=== PATIENT | female | born 2000 | race Caucasian/White ===

== ENCOUNTER 2018-12-05 18:19 | Emergency (ER) | payer OTHER ==
[2018-12-05 19:43] LABS: Appearance,Urine Cloudy (Clear); Bacteria,Urine Rare /hpf; Bilirubin,Urine Negative (Negative); Blood,Urine Negative (Negative); Color,Urine Yellow; Glucose,Urine (UA) Negative (Negative); Ketones,Urine Negative (Negative); Leukocyte Esterase,Urine Large (Negative); Mucus,Urine Occasional /hpf; Nitrite,Urine Negative (Negative); Protein,Urine Negative (Negative); RBC,Urine 3 /hpf (0-5); Specific Gravity,Urine 1.025 (1.001-1.035); Squamous Epithelial Cell,Urine 17 /hpf (0-4); Urobilinogen,Urine <2.0 mg/dL (<2.0); WBC,Urine 2 /hpf (0-5)
[2018-12-05 19:55] LABS: Basophils % (A) 0 %; Eosinophils # (A) 0.1 k/uL (0-0.7); Eosinophils % (A) 1 %; HCT 40.4 % (34.0-46.0); HGB 13.4 gm/dL (11.4-16.0); Lymphocytes # (A) 2.3 k/uL (1.0-4.8); Lymphocytes % (A) 27 %; MCH 31.2 pg (25.0-35.0); MCHC 33.2 g/dL (31.0-37.0); MCV 93.9 fL (80.0-100.0); Mean Platelet Volume 8.7; Monocytes # (A) 0.4 k/uL (0-1.0); Monocytes % (A) 5 %; Neutrophils # (A) 5.3 k/uL (1.3-7.7); Neutrophils % (A) 64 %; Platelet Count 241 k/uL (150-450); RDW 13.7 % (11.5-15.5); WBC 8.3 k/uL (4.0-11.0)
[2018-12-05 20:11] LABS: ALT 29 U/L (9-52); AST 20 U/L (14-36); Albumin 4.6 g/dL (3.5-5.0); Alkaline Phosphatase 112 U/L (38-126); Amylase 55 U/L (30-110); Anion Gap 11 mmol/L; Blood Urea Nitrogen 8 mg/dL (7-17); Calcium 9.7 mg/dL (8.4-10.2); Carbon Dioxide 26 mmol/L (22-30); Chloride 102 mmol/L (98-107); Glucose 107 mg/dL (74-99); Lipase 41 U/L (23-300); Potassium 4.7 mmol/L (3.5-5.1); Sodium 139 mmol/L (137-145); Total Bilirubin 0.3 mg/dL (0.2-1.3); Total Protein 7.8 g/dL (6.3-8.2)
--- NOTE | 2018-12-05 20:25 | US ---
EXAMINATION TYPE: Transabdominal DATE OF EXAM: 12/05/2018 8:08 PM COMPARISON: NONE CLINICAL HISTORY: Pain. Pain LMP unknown EXAM PERFORMED: Transvaginal (TV) and Transabdominal (TA) EXAM MEASUREMENTS: GESTATIONAL AGE / DATING Physician Established: Not yet established Dates by LMP: LMP unknown Dates by First Scan: No previous this is first scan ( Dates by Current Scan for: Unable to date by today's study MATERNAL ANATOMY Uterus: 6.6 x 3.8 x 4.6 cm Right Ovary: 4.0 x 2.4 x 3.1 cm Left Ovary: 2.8 x 1.4 x 2.6 cm Post CDS / Adnexa: wnl Presence of free fluid: no Presence of corpus luteal cyst: Yes right 1.9 x .9 x 2.0cm Presence of subchorionic bleed: No GESTATION / SURVEY IUP: No IUP seen at this time. Beta HcG (if available): Not available at this time IMPRESSION: No acute process.
[2018-12-05 20:35] VITALS: RESP 16
--- NOTE | 2018-12-05 21:15 | ED ---
General Adult HPI - General Chief complaint: Abdominal Pain Stated complaint: abdominal pain/early Time Seen by Provider: 12/05/18 18:49 Source: patient, RN notes reviewed Mode of arrival: ambulatory Limitations: no limitations - History of Present Illness Initial comments: 18-year-old female currently 8 weeks by LMP presents to the emergency department because of test. Patient states she did attempt test that was positive. Patient states she does have some nausea but has not vomited. Patient denies any abdominal pain. She denies any vaginal bleeding or cramping. Patient states she is here because she wants to make sure everything is okay with her . She states she would like an ultrasound done. States she tried to follow up with [facility] PHYS[facility] but she is trying to get insurance so was not able to be seen yet.Patient has no other complaints at this time including shortness of breath, chest pain, abdominal pain, vomiting, headache, or visual changes. - Related Data Home Medications Medication Instructions Recorded Confirmed No Known Home Medications 12/05/18 12/05/18 Allergies Allergy/AdvReac Type Severity Reaction Status Date / Time No Known Allergies Allergy Verified 12/05/18 18:54 Review of Systems ROS Statement: Those systems with pertinent positive or pertinent negative responses have been documented in the HPI. ROS Other: All systems not noted in ROS Statement are negative. Past Medical History Past Medical History: No Reported History History of Any Multi-Drug Resistant Organisms: None Reported Past Surgical History: No Surgical Hx Reported Past Psychological History: No Psychological Hx Reported Smoking Status: Light tobacco smoker Past Alcohol Use History: None Reported Past Drug Use History: None Reported General Exam Limitations: no limitations General appearance: alert, in no apparent distress Head exam: Present: atraumatic, normocephalic, normal inspection Eye exam: Present: normal appearance, PERRL, EOMI. Absent: scleral icterus, conjunctival injection, periorbital swelling ENT exam: Present: normal exam, mucous membranes moist Neck exam: Present: normal inspection, full ROM. Absent: tenderness, meningismus, lymphadenopathy Respiratory exam: Present: normal lung sounds bilaterally. Absent: respiratory distress, wheezes, rales, rhonchi, stridor Cardiovascular Exam: Present: regular rate, normal rhythm, normal heart sounds. Absent: systolic murmur, diastolic murmur, rubs, gallop, clicks GI/Abdominal exam: Present: soft, normal bowel sounds. Absent: distended, tenderness (No lower abdominal tenderness), guarding, rebound, rigid Neurological exam: Present: alert, oriented X3, CN II-XII intact Psychiatric exam: Present: normal affect, normal mood Course Vital Signs 12/05/18 12/05/18 18:44 20:34 Temperature 98.3 F 98.3 F Pulse Rate 76 77 Respiratory 18 16 Rate Blood Pressure 128/80 122/74 O2 Sat by Pulse 98 99 Oximetry Medical Decision Making - Medical Decision Making 18-year-old female with a LMP of 9 weeks ago presents to the emergency department for an ultrasound. Patient states that she is not having any abdominal pain by her mother wanted her to come to the ER to make sure that the "baby was okay." Denies any vaginal bleeding or cramping. Patient is nontender and exam. CBC CMP unremarkable. HCG Quant is 2000. Ultrasound shows no IUP at this time. Patient may be off on her LMP as her hCG Quant is low. This may just be an early . However I discussed the morning to following up with P[facility] CARE PHYSICIAN to rule out ectopic or other complication. Patient does have an appointment with the clinic tomorrow that she will follow up with his bowel. Patient will repeat hCG Quant. She states that she is going to call OBs tomorrow to schedule appointment. - Lab Data Result diagrams: 12/05/18 19:02 12/05/18 19:02 Lab Results 12/05/18 12/05/18 12/05/18 Range/Units 19:02 19:02 19:15 WBC 8.3 (4.0-11.0) k/uL RBC 4.30 (3.80-5.40) m/uL Hgb 13.4 (11.4-16.0) gm/dL Hct 40.4 (34.0-46.0) % MCV 93.9 (80.0-100.0) fL MCH 31.2 (25.0-35.0) pg MCHC 33.2 (31.0-37.0) g/dL RDW 13.7 (11.5-15.5) % Plt Count 241 (150-450) k/uL Neutrophils % 64 % Lymphocytes % 27 % Monocytes % 5 % Eosinophils % 1 % Basophils % 0 % Neutrophils # 5.3 (1.3-7.7) k/uL Lymphocytes # 2.3 (1.0-4.8) k/uL Monocytes # 0.4 (0-1.0) k/uL Eosinophils # 0.1 (0-0.7) k/uL Basophils # 0.0 (0-0.2) k/uL Sodium 139 (137-145) mmol/L Potassium 4.7 (3.5-5.1) mmol/L Chloride 102 (98-107) mmol/L Carbon Dioxide 26 (22-30) mmol/L Anion Gap 11 mmol/L BUN 8 (7-17) mg/dL Creatinine 0.86 (0.52-1.04) mg/dL Est GFR (CKD-EPI)AfAm >90 (>60 ml/min/1.73 sqM) Est GFR (CKD-EPI)NonAf >90 (>60 ml/min/1.73 sqM) Glucose 107 H (74-99) mg/dL Calcium 9.7 (8.4-10.2) mg/dL Total Bilirubin 0.3 (0.2-1.3) mg/dL AST 20 (14-36) U/L ALT 29 (9-52) U/L Alkaline Phosphatase 112 (38-126) U/L Total Protein 7.8 (6.3-8.2) g/dL Albumin 4.6 (3.5-5.0) g/dL Amylase 55 (30-110) U/L Lipase 41 (23-300) U/L HCG, Quant mIU/mL Urine Color Yellow Urine Appearance Cloudy H (Clear) Urine pH 6.0 (5.0-8.0) Ur Specific Hume 1.025 (1.001-1.035) Urine Protein Negative (Negative) Urine Glucose (UA) Negative (Negative) Urine Ketones Negative (Negative) Urine Blood Negative (Negative) Urine Nitrite Negative (Negative) Urine Bilirubin Negative (Negative) Urine Urobilinogen <2.0 (<2.0) mg/dL Ur Leukocyte Esterase Large H (Negative) Urine RBC 3 (0-5) /hpf Urine WBC 2 (0-5) /hpf Ur Squamous Epith Cells 17 H (0-4) /hpf Urine Bacteria Rare H (None) /hpf Urine Mucus Occasional H (None) /hpf Urine HCG, Qual (Not Detectd) 12/05/18 12/05/18 Range/Units 19:15 20:00 WBC (4.0-11.0) k/uL RBC (3.80-5.40) m/uL Hgb (11.4-16.0) gm/dL Hct (34.0-46.0) % MCV (80.0-100.0) fL MCH (25.0-35.0) pg MCHC (31.0-37.0) g/dL RDW (11.5-15.5) % Plt Count (150-450) k/uL Neutrophils % % Lymphocytes % % Monocytes % % Eosinophils % % Basophils % % Neutrophils # (1.3-7.7) k/uL Lymphocytes # (1.0-4.8) k/uL Monocytes # (0-1.0) k/uL Eosinophils # (0-0.7) k/uL Basophils # (0-0.2) k/uL Sodium (137-145) mmol/L Potassium (3.5-5.1) mmol/L Chloride (98-107) mmol/L Carbon Dioxide (22-30) mmol/L Anion Gap mmol/L BUN (7-17) mg/dL Creatinine (0.52-1.04) mg/dL Est GFR (CKD-EPI)AfAm (>60 ml/min/1.73 sqM) Est GFR (CKD-EPI)NonAf (>60 ml/min/1.73 sqM) Glucose (74-99) mg/dL Calcium (8.4-10.2) mg/dL Total Bilirubin (0.2-1.3) mg/dL AST (14-36) U/L ALT (9-52) U/L Alkaline Phosphatase (38-126) U/L Total Protein (6.3-8.2) g/dL Albumin (3.5-5.0) g/dL Amylase (30-110) U/L Lipase (23-300) U/L HCG, Quant 2163.5 mIU/mL Urine Color Urine Appearance (Clear) Urine pH (5.0-8.0) Ur Specific Hume (1.001-1.035) Urine Protein (Negative) Urine Glucose (UA) (Negative) Urine Ketones (Negative) Urine Blood (Negative) Urine Nitrite (Negative) Urine Bilirubin (Negative) Urine Urobilinogen (<2.0) mg/dL Ur Leukocyte Esterase (Negative) Urine RBC (0-5) /hpf Urine WBC (0-5) /hpf Ur Squamous Epith Cells (0-4) /hpf Urine Bacteria (None) /hpf Urine Mucus (None) /hpf Urine HCG, Qual Detected (Not Detectd) Disposition Clinical Impression: Disposition: TRANSFER TO PSYCH HOSP/UNIT Condition: Good Instructions (If sedation given, give patient instructions): (ED) Additional Instructions: Take vitamins. Please attend your appointment with clinic tomorrow. Follow up with [facility]ARE PHYSICIAN in one to 2 days. Return here to the emergency department if you have any worsening symptoms. Is patient prescribed a controlled substance at d/c from ED?: No Referrals: None,Stated [Primary Care Provider] - 1-2 days Luz Elena Ledbetter MD [STAFF PHYSICIAN] - 1-2 days Time of Disposition: 21:46
[2018-12-05 22:25] VITALS: BP 123/76; PULSE 76; TEMP 98.4
== END 2018-12-05 22:31 | disposition home or self-care (01) ==
LOC: EC 18:19
DX: O99.89 Other specified diseases and conditions complicating pregnancy, childbirth and the puerperium (principal); R11.0 Nausea; Z32.01 Encounter for pregnancy test, result positive; O99.331 Smoking (tobacco) complicating pregnancy, first trimester; F17.200 Nicotine dependence, unspecified, uncomplicated; Z3A.08 8 weeks gestation of pregnancy
CPT/HCPCS: 36415; 76801; 76817; 80053; 81001; 81025; 82150; 83690; 84702; 85025; 99284

== ENCOUNTER → 2019-01-10 | Outpatient (CLI) | payer OTHER ==
--- NOTE | 2019-01-10 11:51 | US ---
EXAMINATION TYPE: Transabdominal DATE OF EXAM: 01/10/2019 10:39 AM COMPARISON: US 2019 CLINICAL HISTORY: Z36. Confirm Dates. Confirm dates, 1 EXAM PERFORMED: Transabdominal (TA) EXAM MEASUREMENTS: GESTATIONAL AGE / DATING Physician Established: (9 weeks/4 days) EDC: 08/11/2019 Dates by LMP: Unknown Dates by First Scan: Unable to date by exam Dates by Current Scan for: ( 9 weeks/5 days) EDC: 08/10/2019 MATERNAL ANATOMY Uterus: 11.9 x 6.4 x 6.6cm, anteverted Right Ovary: 3.3 x 2.2 x 2.6cm Left Ovary: 2.7 x 1.7 x 1.8cm Post CDS / Adnexa: wnl Presence of free fluid: no Presence of corpus luteal cyst: not seen Presence of subchorionic bleed: no GESTATION / SURVEY CRL: 2.9cm (9 weeks/5 days) Yolk Sac (normal less than 6mm): not seen Heart Rate: 168 bpm Rhythm: Normal IUP: Live IUP Date of LMP: Unknown Beta HcG (if available): Not available at time of exam. Live single IUP measuring 9 weeks 5 days with a heart rate of 168bpm and an estimated delivery date o f 08/10/2019. IMPRESSION: Single live intrauterine with a sonographic age of 9 weeks and 5 days and estimated date of delivery of 08/10/2019. Dates are concordant with the physician established dates.
== END | disposition home or self-care (01) ==
LOC: RADUSWWP 10:19
PROVIDERS: ATTEND Obstetrics & Gynecology
DX: Z36.9 Encounter for antenatal screening, unspecified (principal)
CPT/HCPCS: 76801

== ENCOUNTER 2019-05-25 17:45 | Outpatient (CLI) | payer OTHER ==
[2019-05-25 18:47] VITALS: BP 138/75; PULSE 95; RESP 14; TEMP 98.1
--- NOTE | 2019-05-26 12:07 | P.MSEPDOC ---
Presenting Problems - Arrival Data Date of Arrival on Unit: 05/25/19 Time of Arrival on Unit: 17:53 Mode of Transport: Ambulatory - Complaint OB-Reason for Admission/Chief Complaint: Headache Comment: headache for one week. no other complaints. bp wnl. reactive strip, no contractions Medical History - Information : 1 Para: 0 Term: 0 : 0 Abortions: Spontaneous or Elective: 0 Number of Living Children: 0 - Gestational Age Gestational Age by KADIE (wks/days): 28 Weeks and 6 Days Review of Systems - Review of Systems Constitutional: No problems Breast: No problems ENT: No problems Cardiovascular: No problems Respiratory: No problems Gastrointestinal: No problems Genitourinary: No problems Musculoskeletal: No problems Neurological: No problems Skin: No problems Vital Signs - Temperature Temperature: 98.1 F Temperature Source: Oral - Pulse Right Brachial Pulse Rate: 95 Pulse Assessment Method: Automatic Cuff - Respirations Respiratory Rate: 14 Oxygen Delivery Method: Room Air - Blood Pressure Right Arm Blood Pressure: 138/75 Blood Pressure Mean: 96 Blood Pressure Source: Automatic Cuff Medical Screen Scoring (Pre) - Cervical Exam Dilation: Exam Deferred - Uterine Contractions Frequency: N/A Duration: N/A Intensity: N/A - Maternal Vital Signs Maternal Temperature: N/A Maternal Blood Pressure: N/A Signs of Preeclampsia: N/A Maternal Respirations: N/A - Maternal Trauma Maternal Trauma: N/A - Assessment - Baby A Baseline FHR: 130 Heart Rate - NICHD Category: Category I (Normal) = 0 NST: Reactive Position: N/A - Total Score - Baby A Total Score - Baby A: 0 - Total Score - Baby B Total Score - Baby B: 0 - Total Score - Baby C Total Score - Baby C: 0 - Level of Risk - Baby A Level of Risk - Baby A: Low (0-5) - Level of Risk - Baby B Level of Risk - Baby B: Low (0-5) - Level of Risk - Baby C Level of Risk - Baby C: Low (0-5) Physician Notification (Pre) - Physician Notified Physician Notified Date: 05/25/19 Physician Notified Time: 18:18 Physician/Practitioner Notifed:: cj New Order Received: Yes - Notification Comment Comment: pt may be discharged to ER for further evaluation Medical Screen Scoring (Post) - Cervical Exam Dilation: Exam Deferred - Uterine Contractions Frequency: N/A Duration: N/A Intensity: N/A - Maternal Vital Signs Maternal Temperature: N/A Maternal Blood Pressure: N/A Signs of Preeclampsia: N/A Maternal Respirations: N/A - Pain Assessment Pain Location and Character: Head Pain Scale Used: Numeric (1 - 10) Pain Intensity: 10 Pain Management Goal: 3 Pain Description: *Acute Pain Frequency: Constant Pain Duration: 7 Pain Duration Units: Days Pain Behavior: None Exhibited Pain Aggravating Factors: None Pharmacological Interventions: Medication FLACC Face: No Expression/Smile = 0 FLACC Legs: Relaxed = 0 FLACC Activity: Lying Quietly = 0 FLACC Cry: No Cry = 0 FLACC Consolability: Content/Relaxed = 0 - Maternal Trauma Maternal Trauma: N/A - Assessment - Baby A Heart Rate: 130 Heart Rate - NICHD Category: Category I (Normal) = 0 NST: Reactive Position: N/A Station: N/A - Total Score Total Score - Baby A: 0 Total Score - Baby B: 0 Total Score - Baby C: 0 - Post Treatment Level of Risk Post Treatment Level of Risk - Baby A: Low (0-5) Post Treatment Level of Risk - Baby B: Low (0-5) Post Treatment Level of Risk - Baby C: Low (0-5) Physician Notification (Post) - Physician Notified Physician Notified Date: 05/25/19 Physician Notified Time: 18:18 Physician/Practitioner Notified:: cj Spoke With: cj New Order Received: Yes - Notification Comment Comment: reported pt visit to triage with c/o headache for past week, rates 10/10, no outward signs of discomfort. bp wnl, reactive strip, no contractions, no other complaints other than headache. Disposition - Disposition OB Disposition: Discharge to home Discharge Date: 05/25/19 Discharge Time: 18:29 I agree with the RN Medical Screening Exam: Yes Risk & Benefit of care provided described in d/c instruction: Yes Diagnosis: RELATED CONDITIONS, UNSPECIFIED, THIRD TRIMESTER (headache)
== END 2019-05-25 18:29 | disposition home or self-care (01) ==
LOC: FBPOP 17:45
PROVIDERS: ATTEND Obstetrics & Gynecology
DX: O26.93 Pregnancy related conditions, unspecified, third trimester (principal); Z3A.28 28 weeks gestation of pregnancy
CPT/HCPCS: 59025; G0463; 99213

== ENCOUNTER 2019-06-23 13:57 | Outpatient (CLI) | payer OTHER ==
[2019-06-23 15:03] LABS: Amorphous Sediment,Urine Rare /hpf; Appearance,Urine Cloudy (Clear); Bilirubin,Urine Negative (Negative); Blood,Urine Negative (Negative); Color,Urine Yellow; Glucose,Urine (UA) Negative (Negative); Ketones,Urine Negative (Negative); Leukocyte Esterase,Urine Moderate (Negative); Mucus,Urine Rare /hpf; Nitrite,Urine Negative (Negative); PH, Urine 6.5 (5.0-8.0); Protein,Urine Negative (Negative); RBC,Urine 4 /hpf (0-5); Specific Gravity,Urine 1.017 (1.001-1.035); Squamous Epithelial Cell,Urine 7 /hpf (0-4); Urobilinogen,Urine <2.0 mg/dL (<2.0); WBC,Urine 15 /hpf (0-5)
[2019-06-23 15:53] VITALS: BP 127/73; PULSE 100; RESP 16; TEMP 96.8
--- NOTE | 2019-06-24 07:11 | P.MSEPDOC ---
Presenting Problems - Arrival Data Date of Arrival on Unit: 06/23/19 Time of Arrival on Unit: 13:57 Mode of Transport: Ambulatory - Complaint OB-Reason for Admission/Chief Complaint: Other Comment: lower abdominal and back pain Medical History - Information : 1 Para: 0 Term: 0 : 0 Abortions: Spontaneous or Elective: 0 Number of Living Children: 0 - Gestational Age Gestational Age by KADIE (wks/days): 33 Weeks and 0 Days Review of Systems - Review of Systems Constitutional: No problems Breast: No problems ENT: No problems Cardiovascular: No problems Respiratory: No problems Gastrointestinal: No problems Genitourinary: No problems Musculoskeletal: No problems Neurological: No problems Skin: No problems Vital Signs - Temperature Temperature: 96.8 F Temperature Source: Temporal Artery Scan - Pulse Pulse Oximetery Pulse Rate: 100 Pulse Assessment Method: Pulse Oximetry - Respirations Respiratory Rate: 16 Oxygen Delivery Method: Room Air O2 Sat by Pulse Oximetry: 98 - Blood Pressure Right Arm Blood Pressure: 127/73 Blood Pressure Mean: 91 Blood Pressure Source: Automatic Cuff Medical Screen Scoring (Pre) - Cervical Exam Dilation: 0 cm = 0 Effacement: Exam Deferred Membranes: Intact - Uterine Contractions Frequency: N/A Duration: N/A Intensity: N/A - Maternal Vital Signs Maternal Temperature: N/A Maternal Blood Pressure: N/A Signs of Preeclampsia: N/A Maternal Respirations: N/A - Maternal Trauma Maternal Trauma: N/A - Assessment - Baby A Baseline FHR: 130 Heart Rate - NICHD Category: Category I (Normal) = 0 NST: Reactive Position: N/A Station: N/A - Total Score - Baby A Total Score - Baby A: 0 - Total Score - Baby B Total Score - Baby B: 0 - Total Score - Baby C Total Score - Baby C: 0 - Level of Risk - Baby A Level of Risk - Baby A: Low (0-5) - Level of Risk - Baby B Level of Risk - Baby B: Low (0-5) - Level of Risk - Baby C Level of Risk - Baby C: Low (0-5) Physician Notification (Pre) - Physician Notified Physician Notified Date: 06/23/19 Physician Notified Time: 15:18 New Order Received: Yes (urinalysis then discharge) - Notification Comment Comment: Dr. Robert called, report given on maternal/ status, complaints of. constant lower abdominal and back pain since yesterday. Pt denies any complications with the . FFN collected and sterile vag exam performed (closed/thick). No. contractions noted on the monitor. Orders to send a urine for urinalysis. If the urine. is "clean" the pt can be discharge home. Dr. Robert called with results of urinalysis, WBC 15, moderate leukocytes, no bacteria. Orders to send urine for culture and discharge pt home. Give pt instructions to call office on tuesday for urine culture results. Disposition - Disposition OB Disposition: Discharge to home Discharge Date: 06/23/19 Discharge Time: 15:25 I agree with the RN Medical Screening Exam: Yes Risk & Benefit of care provided described in d/c instruction: Yes Diagnosis: FALSE LABOR BEFORE 37 COMPLETED WEEKS OF GEST, THIRD TRI (Patient presents to triage with complaints of low back pain. Evaluation is consistent with discomfort of without evidence of labor.)
== END 2019-06-23 15:25 | disposition home or self-care (01) ==
LOC: FBPOP 13:57
PROVIDERS: ATTEND Obstetrics & Gynecology
DX: O47.03 False labor before 37 completed weeks of gestation, third trimester (principal); Z3A.33 33 weeks gestation of pregnancy
CPT/HCPCS: 59025; 81001; 87086; G0463; 99213

== ENCOUNTER 2019-07-16 17:22 | Outpatient (CLI) | payer OTHER ==
[2019-07-16 18:06] VITALS: BP 124/78; PULSE 122; RESP 18; TEMP 99
[2019-07-16] MEDS ORDERED: LACTATED RINGERS 1,000 ML IV ONE (19:30)
[2019-07-16 20:16] LABS: Appearance,Urine Cloudy (Clear); Bilirubin,Urine Negative (Negative); Blood,Urine Moderate (Negative); Color,Urine Yellow; Glucose,Urine (UA) Negative (Negative); Ketones,Urine 3+ (Negative); Leukocyte Esterase,Urine Moderate (Negative); Mucus,Urine Many /hpf; Nitrite,Urine Negative (Negative); Protein,Urine 1+ (Negative); RBC,Urine >182 /hpf (0-5); Specific Gravity,Urine 1.032 (1.001-1.035); Squamous Epithelial Cell,Urine 15 /hpf (0-4); WBC,Urine 8 /hpf (0-5)
--- NOTE | 2019-07-17 10:31 | P.MSEPDOC ---
Presenting Problems - Arrival Data Date of Arrival on Unit: 07/16/19 Time of Arrival on Unit: 17:15 Mode of Transport: Ambulatory - Complaint OB-Reason for Admission/Chief Complaint: Possible Onset of Labor, Acute Nausea/Vomiting Medical History - Information : 1 Para: 0 Term: 0 : 0 Abortions: Spontaneous or Elective: 0 Number of Living Children: 0 - Gestational Age Gestational Age by KADIE (wks/days): 36 Weeks and 2 Days - History Complications: No Care Review of Systems - Review of Systems Constitutional: No problems Breast: No problems ENT: No problems Cardiovascular: No problems Respiratory: No problems Gastrointestinal: No problems Genitourinary: No problems Musculoskeletal: No problems Neurological: No problems Skin: No problems Vital Signs - Temperature Temperature: 99.0 F Temperature Source: Oral - Pulse Pulse Oximetery Pulse Rate: 122 Pulse Assessment Method: Automatic Cuff - Respirations Respiratory Rate: 18 Oxygen Delivery Method: Room Air - Blood Pressure Right Arm Blood Pressure: 124/78 Blood Pressure Mean: 93 Blood Pressure Source: Automatic Cuff Medical Screen Scoring (Pre) - Pain Assessment Pain Location and Character: Abdomen Pain Scale Used: Numeric (1 - 10) Pain Intensity: 10 Pain Description: *Acute Pain Radiation Location: none Pain Frequency: Intermittent Pain Duration: 12 Pain Duration Units: Hours Pain Behavior: Vocalization Pain Aggravating Factors: Contractions Disposition - Disposition OB Disposition: Triage Discharge Date: 07/16/19 Discharge Time: 20:30 I agree with the RN Medical Screening Exam: Yes Risk & Benefit of care provided described in d/c instruction: Yes Diagnosis: DEHYDRATION
== END 2019-07-16 20:30 | disposition home or self-care (01) ==
LOC: FBPOP 17:22
PROVIDERS: ATTEND Obstetrics & Gynecology
DX: O99.89 Other specified diseases and conditions complicating pregnancy, childbirth and the puerperium (principal); E86.0 Dehydration; Z3A.36 36 weeks gestation of pregnancy
CPT/HCPCS: 59025; 96360; 84112; 81001; 87086; G0463; 99214

== ENCOUNTER 2019-07-22 16:36 | Outpatient (CLI) | payer OTHER ==
[2019-07-22 18:44] VITALS: BP 131/77; PULSE 100; RESP 18; TEMP 96.6
--- NOTE | 2019-07-24 08:24 | P.MSEPDOC ---
Presenting Problems - Arrival Data Date of Arrival on Unit: 07/22/19 Time of Arrival on Unit: 16:36 Mode of Transport: Ambulatory - Complaint OB-Reason for Admission/Chief Complaint: Possible Onset of Labor Medical History - Information : 1 Para: 0 Term: 0 : 0 Abortions: Spontaneous or Elective: 0 Number of Living Children: 0 - Gestational Age Gestational Age by KADIE (wks/days): 37 Weeks and 1 Days - History Complications: GBS+ Review of Systems - Review of Systems Constitutional: No problems Breast: No problems ENT: No problems Cardiovascular: No problems Respiratory: No problems Gastrointestinal: No problems Genitourinary: No problems Musculoskeletal: No problems Neurological: No problems Skin: No problems Vital Signs - Temperature Temperature: 96.6 F Temperature Source: Temporal Artery Scan - Pulse Right Brachial Pulse Rate: 100 Pulse Assessment Method: Automatic Cuff - Respirations Respiratory Rate: 18 Oxygen Delivery Method: Room Air O2 Sat by Pulse Oximetry: 100 - Blood Pressure Right Arm Blood Pressure: 131/77 Blood Pressure Mean: 95 Blood Pressure Source: Automatic Cuff Medical Screen Scoring (Pre) - Cervical Exam Dilation: 1-3 cm = 1 Effacement: Exam Deferred Membranes: Intact - Uterine Contractions Frequency: > 5 minutes apart = 1 Duration: > 40 seconds = 2 Intensity: N/A - Maternal Vital Signs Maternal Temperature: N/A Maternal Blood Pressure: N/A Signs of Preeclampsia: N/A Maternal Respirations: N/A - Maternal Trauma Maternal Trauma: N/A - Assessment - Baby A Baseline FHR: 130 Heart Rate - NICHD Category: Category I (Normal) = 0 NST: Reactive Position: N/A Station: N/A - Total Score - Baby A Total Score - Baby A: 4 - Total Score - Baby B Total Score - Baby B: 4 - Total Score - Baby C Total Score - Baby C: 4 - Level of Risk - Baby A Level of Risk - Baby A: Low (0-5) - Level of Risk - Baby B Level of Risk - Baby B: Low (0-5) - Level of Risk - Baby C Level of Risk - Baby C: Low (0-5) Physician Notification (Pre) - Physician Notified Physician Notified Date: 07/22/19 Physician Notified Time: 18:17 New Order Received: Yes - Notification Comment Comment: discharge pt home, follow up at scheduled appt this week, Disposition - Disposition OB Disposition: Triage, Discharge to home, Written follow up instructions reviewed Discharge Date: 07/22/19 Discharge Time: 18:30 I agree with the RN Medical Screening Exam: Yes Risk & Benefit of care provided described in d/c instruction: Yes Diagnosis: FALSE LABOR BEFORE 37 COMPLETED WEEKS OF GEST, THIRD TRI
== END 2019-07-22 18:30 | disposition home or self-care (01) ==
LOC: FBPOP 16:36
PROVIDERS: ATTEND Obstetrics & Gynecology
DX: O47.1 False labor at or after 37 completed weeks of gestation (principal); Z3A.37 37 weeks gestation of pregnancy
CPT/HCPCS: 59025; G0463; 99213

== ENCOUNTER 2019-07-26 07:06 | Outpatient (CLI) | payer OTHER ==
[2019-07-26 09:15] VITALS: BP 122/72; PULSE 90; RESP 20; TEMP 98.6
--- NOTE | 2019-07-26 12:52 | P.MSEPDOC ---
Presenting Problems - Arrival Data Date of Arrival on Unit: 07/26/19 Time of Arrival on Unit: 07:16 Mode of Transport: Ambulatory - Complaint OB-Reason for Admission/Chief Complaint: Other Medical History - Information : 1 Para: 0 Term: 0 : 0 Abortions: Spontaneous or Elective: 0 Number of Living Children: 0 - Gestational Age Gestational Age by KADIE (wks/days): 37 Weeks and 5 Days Review of Systems - Review of Systems Constitutional: No problems Breast: No problems ENT: No problems Cardiovascular: No problems Respiratory: No problems Gastrointestinal: No problems Genitourinary: No problems Musculoskeletal: No problems Neurological: No problems Skin: No problems Vital Signs - Temperature Temperature: 98.6 F Temperature Source: Oral - Pulse Right Brachial Pulse Rate: 90 Pulse Assessment Method: Automatic Cuff - Respirations Respiratory Rate: 20 Oxygen Delivery Method: Room Air O2 Sat by Pulse Oximetry: 98 - Blood Pressure Right Arm Blood Pressure: 122/72 Blood Pressure Mean: 88 Blood Pressure Source: Automatic Cuff Medical Screen Scoring (Pre) - Cervical Exam Dilation: 1-3 cm = 1 Effacement: More than 50% = 2 Membranes: Intact - Uterine Contractions Frequency: > 5 minutes apart = 1 Duration: N/A Intensity: N/A - Maternal Vital Signs Maternal Temperature: N/A Maternal Blood Pressure: N/A Signs of Preeclampsia: N/A Maternal Respirations: N/A - Maternal Trauma Maternal Trauma: N/A - Assessment - Baby A Baseline FHR: 115 Heart Rate - NICHD Category: Category I (Normal) = 0 NST: Reactive Position: N/A - Total Score - Baby A Total Score - Baby A: 4 - Total Score - Baby B Total Score - Baby B: 4 - Total Score - Baby C Total Score - Baby C: 4 - Level of Risk - Baby A Level of Risk - Baby A: Low (0-5) - Level of Risk - Baby B Level of Risk - Baby B: Low (0-5) - Level of Risk - Baby C Level of Risk - Baby C: Low (0-5) Physician Notification (Pre) - Physician Notified Physician Notified Date: 07/26/19 Physician Notified Time: 08:50 New Order Received: Yes - Notification Comment Comment: cervix rechecked after 1 hour with no change noted. contraction irregular. pt resting quietly. may discharge pt to home with instructions Disposition - Disposition OB Disposition: Discharge to home Discharge Date: 07/26/19 Discharge Time: 09:05 I agree with the RN Medical Screening Exam: Yes Risk & Benefit of care provided described in d/c instruction: Yes Diagnosis: FALSE LABOR AT OR AFTER 37 COMPLETED WEEKS OF GESTATION
== END 2019-07-26 09:05 | disposition home or self-care (01) ==
LOC: FBPOP 07:06
PROVIDERS: ATTEND Obstetrics & Gynecology
DX: O47.1 False labor at or after 37 completed weeks of gestation (principal); Z3A.37 37 weeks gestation of pregnancy
CPT/HCPCS: 59025; G0463; 99213

== ENCOUNTER 2019-08-03 07:15 | Outpatient (CLI) | payer OTHER ==
[2019-08-03 08:05] VITALS: BP 122/78; PULSE 96; RESP 16; TEMP 96
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
== END 2019-08-03 08:00 | disposition home or self-care (01) ==
LOC: FBPOP 07:15
PROVIDERS: ATTEND Obstetrics & Gynecology
DX: O9A.313 Physical abuse complicating pregnancy, third trimester (principal); Z3A.38 38 weeks gestation of pregnancy
CPT/HCPCS: 59025; G0463; 99213

== ENCOUNTER 2019-08-11 17:20 | Inpatient (IN) | payer OTHER ==
[2019-08-11] MEDS ORDERED: OXYTOCIN 10 UNIT/ML 1 ML VIAL IM PRN (19:26)
[2019-08-11] MEDS ORDERED: TERBUTALINE 1 MG/ML VIAL SQ PRN (19:26)
[2019-08-11] MEDS ORDERED: METHYLERGONOVINE 0.2 MG/ML 1 ML AMP IM PRN (19:26)
[2019-08-11] MEDS ORDERED: CARBOPROST TROMETHAMINE 250 MCG/ML 1 ML AMP IM PRN (19:26)
[2019-08-11] MEDS ORDERED: LIDOCAINE 0.5% (PF) 5 MG/ML (50 ML SDV) SQ PRN (19:26)
[2019-08-11] MEDS ORDERED: AMPICILLIN 2,000 MG in SODIUM CHLORIDE 0.9% 100 ML IVPB STA (19:26)
[2019-08-11] MEDS ORDERED: LACTATED RINGERS 1,000 ML IV SCH (19:30)
[2019-08-11 20:25] LABS: Anisocytosis Slight; Basophils % (A) 0 %; Eosinophils % (A) 0 %; HCT 33.2 % (34.0-46.0); HGB 10.8 gm/dL (11.4-16.0); Hypochromasia Slight; Lymphocytes # (A) 1.3 k/uL (1.0-4.8); Lymphocytes % (A) 10 %; MCH 28.9 pg (25.0-35.0); MCHC 32.5 g/dL (31.0-37.0); Mean Platelet Volume 11.7; Monocytes # (A) 0.6 k/uL (0-1.0); Monocytes % (A) 5 %; Neutrophils # (A) 10.8 k/uL (1.3-7.7); Neutrophils % (A) 83 %; Platelet Count 207 k/uL (150-450); RBC 3.73 m/uL (3.80-5.40); RDW 16.2 % (11.5-15.5)
[2019-08-11 20:31] LABS: Anisocytosis (M) Present; Large Platelets Present; Polychromasia Present
[2019-08-11] MEDS ORDERED: BENZOCAINE/MENTHOL SPRAY 1 GM/SPRAY AEROSOL TOPICAL PRN (23:38)
[2019-08-11] MEDS ORDERED: WITCH HAZEL 1 EACH MED..PAD TOPICAL PRN (23:38)
[2019-08-11] MEDS ORDERED: SIMETHICONE 80 MG CHEWABLE PO PRN (23:38)
[2019-08-11] MEDS ORDERED: diphenhydrAMINE 25 MG CAP PO PRN (23:38)
[2019-08-11] MEDS ORDERED: ACETAMINOPHEN TAB 325 MG TAB PO PRN (23:38)
[2019-08-11] MEDS ORDERED: HYDROCORTISONE 2.5% RECTAL CREAM 30 GM TUBE RECTAL PRN (23:38)
[2019-08-11] MEDS ORDERED: diphenhydrAMINE 50 MG/ML 1 ML VIAL IVP PRN ×2 (23:38)
[2019-08-11] MEDS ORDERED: LANOLIN CREAM 5 GM TUBE TOPICAL PRN (23:38)
[2019-08-11] MEDS ORDERED: ZOLPIDEM 5 MG TAB PO PRN (23:38)
[2019-08-11] MEDS ORDERED: diphenhydrAMINE 50 MG CAP PO PRN (23:38)
[2019-08-11] MEDS ORDERED: OXYTOCIN 20 UNITS/1000 ML NS 1,000 ML IV SCH (23:45)
[2019-08-12] MEDS ORDERED: AMPICILLIN 1,000 MG in SODIUM CHLORIDE 0.9% 50 ML IVPB SCH ×2
[2019-08-12] MEDS: IBUPROFEN 600 MG TAB PO PRN ×4 (00:05→23:52)
[2019-08-12 06:33] LABS: Anisocytosis Slight; Basophils % (A) 0 %; Eosinophils # (A) 0.1 k/uL (0-0.7); Eosinophils % (A) 0 %; HCT 31.3 % (34.0-46.0); HGB 9.9 gm/dL (11.4-16.0); Lymphocytes # (A) 1.2 k/uL (1.0-4.8); Lymphocytes % (A) 8 %; MCH 27.9 pg (25.0-35.0); MCHC 31.8 g/dL (31.0-37.0); MCV 87.9 fL (80.0-100.0); Mean Platelet Volume 11.3; Monocytes # (A) 0.6 k/uL (0-1.0); Monocytes % (A) 4 %; Neutrophils # (A) 13.2 k/uL (1.3-7.7); Neutrophils % (A) 86 %; Platelet Count 208 k/uL (150-450); RBC 3.56 m/uL (3.80-5.40); RDW 16.6 % (11.5-15.5); WBC 15.4 k/uL (3.8-10.6)
--- NOTE | 2019-08-12 11:39 | P.HPOB ---
History of Present Illness H&P Date: 08/11/19 Chief Complaint: Labor 19-year-old presents at 40 weeks in labor. Her cervix is 5 cm dilated, 80% effaced, -2 station. She is suki every 2-3 minutes. heart tones 130 with moderate variability and reactive. Review of Systems All systems: negative Constitutional: Denies chills, Denies fever Eyes: denies blurred vision, denies pain Ears, nose, mouth and throat: Denies headache, Denies sore throat Cardiovascular: Denies chest pain, Denies shortness of breath Respiratory: Denies cough Gastrointestinal: Denies abdominal pain, Denies diarrhea, Denies nausea, Denies vomiting Genitourinary: Denies dysuria, Denies hematuria Musculoskeletal: Denies myalgias Integumentary: Denies pruritus, Denies rash Neurological: Denies numbness, Denies weakness Psychiatric: Denies anxiety, Denies depression Endocrine: Denies fatigue, Denies weight change Past Medical History Past Medical History: No Reported History Additional Past Medical History / Comment(s): Obstetric history: She's had care with Dr. Ambriz. Blood type O positive, and was negative, rubella immune, hepatitis B negative, GBS positive, RPR nonreactive. History of Any Multi-Drug Resistant Organisms: None Reported Past Surgical History: No Surgical Hx Reported Past Anesthesia/Blood Transfusion Reactions: No Reported Reaction Past Psychological History: No Psychological Hx Reported Smoking Status: Never smoker Past Alcohol Use History: None Reported Past Drug Use History: None Reported - Past Family History Mother Family Medical History: No Reported History Medications and Allergies Home Medications Medication Instructions Recorded Confirmed Type Pnv No.95/Ferrous Fum/Folic AC 1 tab PO DAILY 05/25/19 08/11/19 History [ Multivitamin Tablet] Allergies Allergy/AdvReac Type Severity Reaction Status Date / Time No Known Allergies Allergy Verified 08/11/19 17:30 Exam Osteopathic Statement: *. No significant issues noted on an osteopathic structural exam other than those noted in the History and Physical/Consult. Vital Signs Temp Pulse Resp BP Pulse Ox 08/12/19 08:00 98.6 F 100 15 113/72 08/12/19 04:00 98.3 F 104 H 16 116/70 08/12/19 01:40 96.2 F L 117 H 16 128/64 08/12/19 01:10 121 H 16 129/69 08/12/19 00:40 118 H 16 125/78 08/12/19 00:25 110 H 16 126/76 08/12/19 00:10 110 H 16 125/78 08/11/19 23:55 99.1 F 108 H 16 121/79 08/11/19 23:40 106 H 16 131/90 08/11/19 20:00 98.9 F 105 H 16 139/82 08/11/19 19:00 96.3 F L 94 15 138/79 100 Intake and Output 08/11/19 08/12/19 08/12/19 22:59 06:59 14:59 Other: # Voids 1 1 # Bowel Movements 1 Weight 97.976 kg Heart: Regular rate and rhythm Lungs: Clear to auscultation bilaterally Abdomen: Soft, nontender Extremities: Negative Homans sign Results Result Diagrams: 08/12/19 06:15 Abnormal Lab Results - Last 24 Hours (Table) 08/11/19 08/12/19 Range/Units 20:00 06:15 WBC 13.0 H 15.4 H (3.8-10.6) k/uL RBC 3.73 L 3.56 L (3.80-5.40) m/uL Hgb 10.8 L 9.9 L (11.4-16.0) gm/dL Hct 33.2 L 31.3 L (34.0-46.0) % RDW 16.2 H 16.6 H (11.5-15.5) % Neutrophils # 10.8 H 13.2 H (1.3-7.7) k/uL Assessment and Plan (1) Normal labor Current Visit: Yes Status: Acute Code(s): O80 - ENCOUNTER FOR FULL-TERM UNCOMPLICATED DELIVERY; Z37.9 - OUTCOME OF DELIVERY, UNSPECIFIED SNOMED Code(s): 53494264 Plan: 1. Admit to family place 2. Expectant management 3. Anticipate normal vaginal delivery.
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
--- NOTE | 2019-08-12 11:43 | P.PNOBGVD ---
Subjective - Subjective Principal diagnosis: Status post total vaginal delivery day #1 Interval history: Patient seen and examined. Denies nausea, vomiting, chest pain, shortness of breath or calf pain. Patient reports: Reports appetite normal, Reports voiding normally, Reports pain well controlled, Reports ambulating normally [place]: doing well Objective - Latest Vital Signs Latest vital signs: Vital Signs Temp Pulse Resp BP Pulse Ox 08/12/19 08:00 98.6 F 100 15 113/72 08/12/19 04:00 98.3 F 104 H 16 116/70 08/12/19 01:40 96.2 F L 117 H 16 128/64 08/12/19 01:10 121 H 16 129/69 08/12/19 00:40 118 H 16 125/78 08/12/19 00:25 110 H 16 126/76 08/12/19 00:10 110 H 16 125/78 08/11/19 23:55 99.1 F 108 H 16 121/79 08/11/19 23:40 106 H 16 131/90 08/11/19 20:00 98.9 F 105 H 16 139/82 08/11/19 19:00 96.3 F L 94 15 138/79 100 Intake and Output 08/11/19 08/12/19 08/12/19 22:59 06:59 14:59 Other: # Voids 1 1 # Bowel Movements 1 Weight 97.976 kg - Exam Lungs: bilateral: normal Chest: Normal S1, Normal S2 Extremities: Present: normal Abdomen: Present: normal appearance, soft Uterus: Present: normal, firm - Labs Labs: Abnormal Lab Results - Last 24 Hours (Table) 08/11/19 08/12/19 Range/Units 20:00 06:15 WBC 13.0 H 15.4 H (3.8-10.6) k/uL RBC 3.73 L 3.56 L (3.80-5.40) m/uL Hgb 10.8 L 9.9 L (11.4-16.0) gm/dL Hct 33.2 L 31.3 L (34.0-46.0) % RDW 16.2 H 16.6 H (11.5-15.5) % Neutrophils # 10.8 H 13.2 H (1.3-7.7) k/uL Assessment and Plan (1) Normal labor Current Visit: Yes Status: Resolved Code(s): O80 - ENCOUNTER FOR FULL-TERM UNCOMPLICATED DELIVERY; Z37.9 - OUTCOME OF DELIVERY, UNSPECIFIED SNOMED Code(s): 08876303 (2) Normal vaginal delivery Current Visit: Yes Status: Acute Code(s): O80 - ENCOUNTER FOR FULL-TERM UNCOMPLICATED DELIVERY SNOMED Code(s): 78454801 Plan: 1. Continue care
[2019-08-12] MEDS: SENNOSIDES-DOCUSATE SODIUM 1 EACH TAB PO SCH ×2 (11:47→20:22)
[2019-08-13 00:09] VITALS: RESP 16
[2019-08-13] MEDS: SENNOSIDES-DOCUSATE SODIUM 1 EACH TAB PO SCH (08:06)
[2019-08-13] MEDS: IBUPROFEN 600 MG TAB PO PRN (08:06)
[2019-08-13 08:35] VITALS: TEMP 98.3
--- NOTE | 2019-08-13 08:50 | P.DS ---
Providers Date of admission: 08/11/19 19:08 Expected date of discharge: 08/13/19 Attending physician: Amreica Ambriz Primary care physician: Stated None Hospital Course: This is a 19-year-old female 1 para 0 at 40-0/7 weeks who presented to labor and delivery with active labor. She delivered vaginally a viable female on 08/11/2019 with scores of 3 at 1 minute 9 at 5 minutes and 9 at 10 minutes and infant weight of 7 lbs. 9 oz. Her course has been uncomplicated. Lochia is decreasing. Pain is fairly well controlled with ibuprofen. She is bottle feeding. Vital signs are stable. Abdomen is soft with fundus firm and nontender. Extremities show negative Homans. Impression is status post vaginal delivery day #1. Plan is to discharge home today. Routine instructions are given. She will be given a prescription for ibuprofen. She is advised to follow up in the office in 6 weeks for check. She is advised to call the office if she has any further questions or concerns prior to her appointment time. Procedures: Spontaneous vaginal delivery of a viable female infant on 08/11/2019 Patient Condition at Discharge: Stable Plan - Discharge Summary New Discharge Prescriptions: New Ibuprofen [Motrin] 600 mg PO Q6HR PRN #60 tab PRN Reason: Mild Pain Or Fever >= 100.5 No Action Pnv No.95/Ferrous Fum/Folic AC [ Multivitamin Tablet] 1 tab PO DAILY Discharge Medication List Pnv No.95/Ferrous Fum/Folic AC [ Multivitamin Tablet] 1 tab PO DAILY 05/25/19 [History] Ibuprofen [Motrin] 600 mg PO Q6HR PRN #60 tab 08/13/19 [Rx] Follow up Appointment(s)/Referral(s): America Ambriz DO [Doctor of Osteopathic Medicine] - 6 Weeks Activity/Diet/Wound Care/Special Instructions: Instructions 1. Do not begin any exercise program for 3 weeks. 2. Do not resume sexual relations for 3 weeks or longer if uncomfortable. 3. You may take tub baths or showers at any time. 4. You may use tampons if desired after 3 weeks. 5. Keep the area of episiotomy (stitches) clean and dry. 6. If you are not nursing, wear a good fitting, supportive bra during the day and limit fluid intake for at least 1 week to prevent breast engorgement. 7. Call the office, [phone], within the next week to make appointment for your 6 week checkup if it has not already been made. 8. Report any of the following occurrences to the doctor promptly: a. Heavy, excessive bleeding b. Chills, fever c. Burning or frequency of urination d. Pain or redness and breasts if nursing e. Increasing pain or swelling in episiotomy (stitches). In addition to the above instructions, the following additional should be followed: 1. No heavy lifting or straining (exercising) until after 6 week checkup. 2. Keep abdominal incision clean and dry: You may wear a dressing if more comfortable. 3. Make office appointment for 10 days after going home or as instructed by her doctor. Discharge Disposition: HOME SELF-CARE
[2019-08-13 16:08] VITALS: BP 121/80; PULSE 86
== END 2019-08-13 18:00 | disposition home or self-care (01) | DRG 807 ==
LOC: FBPOP 17:20 → 4FBP 19:08
PROVIDERS: ADMIT Obstetrics & Gynecology; ATTEND Obstetrics & Gynecology
PROC: 10E0XZZ Delivery of Products of Conception, External Approach (ICD-10-PCS; principal; 2019-08-11)
DX: O69.1XX0 Labor and delivery complicated by cord around neck, with compression, not applicable or unspecified (principal); Z37.0 Single live birth; Z3A.40 40 weeks gestation of pregnancy
CPT/HCPCS: 59025; 84112; 85025; 86850; 86900; 86901; 99213

== ENCOUNTER 2020-05-08 20:27 | Emergency (ER) | payer OTHER ==
[2020-05-08 20:36] VITALS: BP 136/78; PULSE 82; RESP 18; TEMP 98.8
[2020-05-08] MEDS ORDERED: diphenhydrAMINE 50 MG CAP PO STA (20:57)
--- NOTE | 2020-05-08 20:59 | ED ---
Skin/Abscess/FB HPI - General Chief complaint: Skin/Abscess/Foreign Body Stated complaint: ENT,Rash Time Seen by Provider: 05/08/20 20:41 Source: patient Mode of arrival: ambulatory Limitations: no limitations - History of Present Illness Initial comments: Patient is a 20-year-old female presenting to the emergency department with a chief complaint of a rash. Patient reports she developed a similar rash as her daughter was also in her for examination. Patient states she developed a rash after her daughter. States her rash is on her neck and upper chest region. Patient reports it is itchy but not painful. Denies any discharge from her region. Denies any night sweats or chills. Denies taking medication to alleviate the symptoms. - Related Data Home Medications Medication Instructions Recorded Confirmed Pnv No.95/Ferrous Fum/Folic AC 1 tab PO DAILY 05/25/19 08/11/19 [ Multivitamin Tablet] Previous Rx's Medication Instructions Recorded Ibuprofen [Motrin] 600 mg PO Q6HR PRN #60 tab 08/13/19 Allergies Allergy/AdvReac Type Severity Reaction Status Date / Time No Known Allergies Allergy Verified 05/08/20 20:36 Review of Systems ROS Statement: Those systems with pertinent positive or pertinent negative responses have been documented in the HPI. ROS Other: All systems not noted in ROS Statement are negative. Past Medical History Past Medical History: No Reported History Additional Past Medical History / Comment(s): Obstetric history: She's had care with Dr. Ambriz. Blood type O positive, and was negative, rubella immune, hepatitis B negative, GBS positive, RPR nonreactive. History of Any Multi-Drug Resistant Organisms: None Reported Past Surgical History: No Surgical Hx Reported Past Anesthesia/Blood Transfusion Reactions: No Reported Reaction Past Psychological History: No Psychological Hx Reported Smoking Status: Never smoker Past Alcohol Use History: None Reported Past Drug Use History: None Reported - Past Family History Mother Family Medical History: No Reported History General Exam Limitations: no limitations General appearance: alert, in no apparent distress Head exam: Present: atraumatic, normocephalic, normal inspection Eye exam: Present: normal appearance, PERRL, EOMI Pupils: Present: normal accommodation ENT exam: Present: normal oropharynx, mucous membranes moist, TM's normal bilaterally, normal external ear exam Neck exam: Present: normal inspection, full ROM, other (Maculopapular rash on the neck) Respiratory exam: Present: normal lung sounds bilaterally. Absent: respiratory distress, wheezes, rales Cardiovascular Exam: Present: regular rate, normal rhythm, normal heart sounds Extremities exam: Present: normal inspection, full ROM, normal capillary refill. Absent: tenderness Back exam: Present: normal inspection, full ROM. Absent: tenderness, CVA tenderness (R), CVA tenderness (L) Neurological exam: Present: alert, oriented X3, normal gait Psychiatric exam: Present: normal affect, normal mood Skin exam: Present: warm, dry, intact, normal color, rash (Maculopapular rash in the neck) Course Vital Signs 05/08/20 20:32 Temperature 98.8 F Pulse Rate 82 Respiratory 18 Rate Blood Pressure 136/78 O2 Sat by Pulse 98 Oximetry Medical Decision Making - Medical Decision Making Patient is 20-year-old female presenting to emergency Department with a chief complaint of a rash. On physical examination, this appears to be a viral exanthem. I think she received a rash from her daughter who developed that slightly before her period Patient was given Benadryl and it did improve the rash slightly. Advised patient to take Benadryl to help with the itching and the rash. Patient was advised about the importance of hand hygiene to prevent further spreading of the condition. Strict return parameters were thoroughly discussed patient was understanding and agreeable. She has not had any fevers. Vitals are stable here. She is advised to follow with the primary care physician. Case discussed with physician. Disposition Clinical Impression: Viral exanthem Disposition: HOME SELF-CARE Condition: Stable Instructions (If sedation given, give patient instructions): Viral Exanthem (ED) Additional Instructions: you can take Benadryl to help with itching. Follow with her primary care physician. Return to emergency department if symptoms worsen. Is patient prescribed a controlled substance at d/c from ED?: No Referrals: None,Stated [Primary Care Provider] - 1-2 days Time of Disposition: 22:07
== END 2020-05-08 22:13 | disposition home or self-care (01) ==
LOC: EC 20:27
DX: B09 Unspecified viral infection characterized by skin and mucous membrane lesions (principal)
CPT/HCPCS: 99282

== ENCOUNTER 2020-08-29 00:16 | Emergency (ER) | payer OTHER ==
[2020-08-29] MEDS ORDERED: ONDANSETRON 4 MG/2 ML VIAL IVP STA (00:46)
[2020-08-29] MEDS ORDERED: SODIUM CHLORIDE 0.9% 1,000 ML IV STA (00:46)
[2020-08-29] MEDS ORDERED: KETOROLAC 15 MG/ML 1 ML VIAL IVP STA (00:46)
[2020-08-29] MEDS ORDERED: FAMOTIDINE 20 MG/2 ML VIAL IV STA (00:47)
--- NOTE | 2020-08-29 00:50 | ED ---
Female Urogenital HPI - General Chief complaint: Urogenital Stated complaint: Urogenital Time Seen by Provider: 08/29/20 00:36 Source: patient Mode of arrival: ambulatory Limitations: no limitations - History of Present Illness Initial comments: 20 year-old female patient presents to the emergency department for evaluation of pelvic pain that has been intermittent for the last 3 weeks. States that she also gets an intermittent tingling sensation to the lower abdomen. Patient states there is no pattern to the pain. States it seems like it might get worse when she eats or drinks. States she has been having normal bowel movements. Denies any abnormal vaginal bleeding or discharge. States that STIs are a possibility. Denies any hematuria, dysuria, urinary frequency, urinary urgency. Denies any fever or chills with this. Denies history of abdominal surgery. States she has had ovarian cyst in the past. Patient denies any recent rash, cough, shortness of breath, chest pain, nausea, vomiting, diarrhea, constipation, back pain, numbness, tingling, dizziness, weakness, headache, visual changes, or any other complaints. - Related Data Home Medications Medication Instructions Recorded Confirmed Pnv No.95/Ferrous Fum/Folic AC 1 tab PO DAILY 05/25/19 08/11/19 [ Multivitamin Tablet] Previous Rx's Medication Instructions Recorded Ibuprofen [Motrin] 600 mg PO Q6HR PRN #60 tab 08/13/19 Allergies Allergy/AdvReac Type Severity Reaction Status Date / Time No Known Allergies Allergy Verified 08/29/20 00:30 Review of Systems ROS Statement: Those systems with pertinent positive or pertinent negative responses have been documented in the HPI. ROS Other: All systems not noted in ROS Statement are negative. Past Medical History Past Medical History: No Reported History Additional Past Medical History / Comment(s): Obstetric history: She's had care with Dr. Ambriz. Blood type O positive, and was negative, rubella immune, hepatitis B negative, GBS positive, RPR nonreactive. History of Any Multi-Drug Resistant Organisms: None Reported Past Surgical History: No Surgical Hx Reported Past Anesthesia/Blood Transfusion Reactions: No Reported Reaction Past Psychological History: No Psychological Hx Reported Smoking Status: Vaper Past Alcohol Use History: None Reported Past Drug Use History: None Reported - Past Family History Mother Family Medical History: No Reported History General Exam Limitations: no limitations General appearance: alert, in no apparent distress, other (This is a well- developed, well-nourished adult female patient in no acute distress. Vital signs upon presentation are temperature 98.7F, pulse 76, respirations 16, blood pressure 114/62, pulse ox 97% on room air.) Eye exam: Present: normal appearance, PERRL, EOMI. Absent: scleral icterus, conjunctival injection, periorbital swelling ENT exam: Present: normal exam, normal oropharynx, mucous membranes moist Respiratory exam: Present: normal lung sounds bilaterally. Absent: respiratory distress, wheezes, rales, rhonchi, stridor Cardiovascular Exam: Present: regular rate, normal rhythm, normal heart sounds. Absent: systolic murmur, diastolic murmur, rubs, gallop, clicks GI/Abdominal exam: Present: soft, tenderness (midepigastric, suprapubic, left lower quadrant), normal bowel sounds. Absent: distended, guarding, rebound, rigid External exam: Present: normal external exam Speculum exam: Present: cervical discharge, other (Cervical erythema and friability) By manual exam: Present: normal by manual exam. Absent: cervical motion tenderness, adnexal tenderness, adnexal mass Back exam: Present: normal inspection. Absent: CVA tenderness (R), CVA tenderness (L) Neurological exam: Present: alert, oriented X3, CN II-XII intact Psychiatric exam: Present: normal affect, normal mood Skin exam: Present: warm, dry, intact, normal color. Absent: rash Course Vital Signs 08/29/20 08/29/20 00:31 02:42 Temperature 98.7 F 97.9 F Pulse Rate 76 71 Respiratory 16 19 Rate Blood Pressure 114/62 134/71 O2 Sat by Pulse 97 98 Oximetry Medical Decision Making - Medical Decision Making 20-year-old male patient presents to the emergency department today for evaluation of pelvic pain and tingling intermittent over the last 3 weeks. Physical examination did reveal lower abdominal tenderness especially over the suprapubic and left lower quadrant regions. Labs reviewed and were unrema rkable. She is not . Did perform pelvic ultrasound which showed mild to moderate pelvic free fluid no evidence of adnexal mass. Pelvic exam was performed and showed erythema and friability of the cervix with cervical discharge. Cultures were obtained. Patient was treated empirically for sexually transmitted infections. She'll be discharged to follow-up with her primary care physician for recheck in 1-2 days. She is instructed follow up with her marine operations coordinator as soon as possible. Return parameters were discussed in detail. She verbalizes understanding and agrees with this plan. - Lab Data Result diagrams: 08/29/20 00:52 08/29/20 00:52 Lab Results 08/29/20 08/29/20 08/29/20 Range/Units 00:46 00:46 00:52 WBC 7.4 (3.8-10.6) k/uL RBC 4.16 (3.80-5.40) m/uL Hgb 13.1 (11.4-16.0) gm/dL Hct 37.6 (34.0-46.0) % MCV 90.6 (80.0-100.0) fL MCH 31.4 (25.0-35.0) pg MCHC 34.7 (31.0-37.0) g/dL RDW 13.6 (11.5-15.5) % Plt Count 205 (150-450) k/uL MPV 10.5 Neutrophils % 53 % Lymphocytes % 35 % Monocytes % 6 % Eosinophils % 3 % Basophils % 1 % Neutrophils # 3.9 (1.3-7.7) k/uL Lymphocytes # 2.6 (1.0-4.8) k/uL Monocytes # 0.5 (0-1.0) k/uL Eosinophils # 0.2 (0-0.7) k/uL Basophils # 0.1 (0-0.2) k/uL Sodium (137-145) mmol/L Potassium (3.5-5.1) mmol/L Chloride (98-107) mmol/L Carbon Dioxide (22-30) mmol/L Anion Gap mmol/L BUN (7-17) mg/dL Creatinine (0.52-1.04) mg/dL Est GFR (CKD-EPI)AfAm (>60 ml/min/1.73 sqM) Est GFR (CKD-EPI)NonAf (>60 ml/min/1.73 sqM) Glucose (74-99) mg/dL Calcium (8.4-10.2) mg/dL Total Bilirubin (0.2-1.3) mg/dL AST (14-36) U/L ALT (4-34) U/L Alkaline Phosphatase (38-126) U/L Total Protein (6.3-8.2) g/dL Albumin (3.5-5.0) g/dL Lipase (23-300) U/L Urine Color Yellow Urine Appearance Cloudy H (Clear) Urine pH 6.5 (5.0-8.0) Ur Specific [place] 1.033 (1.001-1.035) Urine Protein Trace H (Negative) Urine Glucose (UA) Negative (Negative) Urine Ketones Negative (Negative) Urine Blood Negative (Negative) Urine Nitrite Negative (Negative) Urine Bilirubin Negative (Negative) Urine Urobilinogen 2.0 (<2.0) mg/dL Ur Leukocyte Esterase Moderate H (Negative) Urine RBC 1 (0-5) /hpf Urine WBC 4 (0-5) /hpf Ur Squamous Epith Cells 8 H (0-4) /hpf Urine Bacteria Rare H (None) /hpf Hyaline Casts 1 (0-2) /lpf Urine Mucus Few H (None) /hpf Urine HCG, Qual Not Detected (Not Detectd) Trichomonas Ag (Rapid) (Negative) 08/29/20 08/29/20 Range/Units 00:52 00:52 WBC (3.8-10.6) k/uL RBC (3.80-5.40) m/uL Hgb (11.4-16.0) gm/dL Hct (34.0-46.0) % MCV (80.0-100.0) fL MCH (25.0-35.0) pg MCHC (31.0-37.0) g/dL RDW (11.5-15.5) % Plt Count (150-450) k/uL MPV Neutrophils % % Lymphocytes % % Monocytes % % Eosinophils % % Basophils % % Neutrophils # (1.3-7.7) k/uL Lymphocytes # (1.0-4.8) k/uL Monocytes # (0-1.0) k/uL Eosinophils # (0-0.7) k/uL Basophils # (0-0.2) k/uL Sodium 139 (137-145) mmol/L Potassium 4.4 (3.5-5.1) mmol/L Chloride 108 H (98-107) mmol/L Carbon Dioxide 23 (22-30) mmol/L Anion Gap 8 mmol/L BUN 16 (7-17) mg/dL Creatinine 0.59 (0.52-1.04) mg/dL Est GFR (CKD-EPI)AfAm >90 (>60 ml/min/1.73 sqM) Est GFR (CKD-EPI)NonAf >90 (>60 ml/min/1.73 sqM) Glucose 112 H (74-99) mg/dL Calcium 8.7 (8.4-10.2) mg/dL Total Bilirubin 0.4 (0.2-1.3) mg/dL AST 35 (14-36) U/L ALT 50 H (4-34) U/L Alkaline Phosphatase 97 (38-126) U/L Total Protein 7.7 (6.3-8.2) g/dL Albumin 4.3 (3.5-5.0) g/dL Lipase 49 (23-300) U/L Urine Color Urine Appearance (Clear) Urine pH (5.0-8.0) Ur Specific [place] (1.001-1.035) Urine Protein (Negative) Urine Glucose (UA) (Negative) Urine Ketones (Negative) Urine Blood (Negative) Urine Nitrite (Negative) Urine Bilirubin (Negative) Urine Urobilinogen (<2.0) mg/dL Ur Leukocyte Esterase (Negative) Urine RBC (0-5) /hpf Urine WBC (0-5) /hpf Ur Squamous Epith Cells (0-4) /hpf Urine Bacteria (None) /hpf Hyaline Casts (0-2) /lpf Urine Mucus (None) /hpf Urine HCG, Qual (Not Detectd) Trichomonas Ag (Rapid) Negative (Negative) - Radiology Data Radiology results: report reviewed Ultrasound of the pelvis was obtained. Report was reviewed in its entirety. Impression by Dr. Garza shows mild to moderately fluid in the dependent pelvis. Otherwise negative endovaginal pelvic sonogram. Disposition Clinical Impression: Pelvic pain, Cervicitis Disposition: HOME SELF-CARE Condition: Good Instructions (If sedation given, give patient instructions): Cervicitis (ED), Pelvic Pain in Women (ED) Additional Instructions: Await culture results. Take pain medication as needed for pain control. Follow-up through marine operations coordinator and primary care physician for recheck as soon as possible. Return to the emergency department for any new, worsening, or concerning symptoms. Is patient prescribed a controlled substance at d/c from ED?: No Referrals: None,Stated [Primary Care Provider] - 1-2 days Time of Disposition: 02:16
[2020-08-29 01:37] LABS: ALT 50 U/L (4-34); AST 35 U/L (14-36); African American GFR (CKD) >90 (>60 ml/min/1.73 sqM); Albumin 4.3 g/dL (3.5-5.0); Alkaline Phosphatase 97 U/L (38-126); Anion Gap 8 mmol/L; Blood Urea Nitrogen 16 mg/dL (7-17); Calcium 8.7 mg/dL (8.4-10.2); Carbon Dioxide 23 mmol/L (22-30); Chloride 108 mmol/L (98-107); Glucose 112 mg/dL (74-99); Lipase 49 U/L (23-300); Non-African American GFR(CKD) >90 (>60 ml/min/1.73 sqM); Potassium 4.4 mmol/L (3.5-5.1); Sodium 139 mmol/L (137-145); Total Bilirubin 0.4 mg/dL (0.2-1.3); Total Protein 7.7 g/dL (6.3-8.2)
[2020-08-29 01:44] LABS: Appearance,Urine Cloudy (Clear); Bacteria,Urine Rare /hpf; Bilirubin,Urine Negative (Negative); Blood,Urine Negative (Negative); Color,Urine Yellow; Glucose,Urine (UA) Negative (Negative); Hyaline Casts,Urine 1 /lpf (0-2); Ketones,Urine Negative (Negative); Leukocyte Esterase,Urine Moderate (Negative); Mucus,Urine Few /hpf; Nitrite,Urine Negative (Negative); PH, Urine 6.5 (5.0-8.0); Protein,Urine Trace (Negative); RBC,Urine 1 /hpf (0-5); Specific Gravity,Urine 1.033 (1.001-1.035); Squamous Epithelial Cell,Urine 8 /hpf (0-4); WBC,Urine 4 /hpf (0-5)
[2020-08-29 02:00] LABS: Basophils # (A) 0.1 k/uL (0-0.2); Basophils % (A) 1 %; Eosinophils # (A) 0.2 k/uL (0-0.7); Eosinophils % (A) 3 %; HCT 37.6 % (34.0-46.0); HGB 13.1 gm/dL (11.4-16.0); Lymphocytes # (A) 2.6 k/uL (1.0-4.8); Lymphocytes % (A) 35 %; MCH 31.4 pg (25.0-35.0); MCHC 34.7 g/dL (31.0-37.0); MCV 90.6 fL (80.0-100.0); Mean Platelet Volume 10.5; Monocytes # (A) 0.5 k/uL (0-1.0); Monocytes % (A) 6 %; Neutrophils # (A) 3.9 k/uL (1.3-7.7); Neutrophils % (A) 53 %; Platelet Count 205 k/uL (150-450); RBC 4.16 m/uL (3.80-5.40); RDW 13.6 % (11.5-15.5); WBC 7.4 k/uL (3.8-10.6)
[2020-08-29] MEDS ORDERED: cefTRIAXone 1,000 MG VIAL (IM USE) IM STA (02:02)
[2020-08-29] MEDS ORDERED: AZITHROMYCIN 500 MG TAB PO STA (02:02)
--- NOTE | 2020-08-29 02:10 | US ---
EXAM: US Pelvis Transvaginal CLINICAL HISTORY: ITS.REASON US Reason: Pelvic pain TECHNIQUE: Real-time transvaginal pelvic ultrasound with image documentation. Transvaginal imaging was used for better evaluation of the endometrium and adnexa. COMPARISON: 01/10/2019 FINDINGS: Uterus/cervix: The uterus measures 8 x 3.8 x 5 cm. The endometrial stripe measures 11 mm in thickness. No myometrial mass. Right ovary: Nondominant follicles in the right ovary. The right ovary measures 3.5 x 2 x 5.4 cm. The largest cyst measures 11 x 8 mm. Arterial and venous flow noted internally. Left ovary: The left ovary measures 2.4 x 3.6 x 2.5 cm. Internal arterial and venous flow noted. No adnexal mass. Free fluid: Mild to moderate free fluid in the pelvis measures up to 5. 5 x 3.1 x 1 cm. Free fluid is also noted adjacent to both adnexa. Bladder: Empty bladder which cannot be evaluated with this probe. IMPRESSION: Mild to moderate free fluid in the dependent pelvis. Otherwise negative endovaginal pelvic sonogram.
[2020-08-29] MEDS ORDERED: ACET/COD 300 MG/30 MG STARTER PACK 6 TAB BTL PO STA (02:14)
[2020-08-29] MEDS ORDERED: metroNIDAZOLE 500 MG TAB PO STA (02:14)
[2020-08-29 02:44] VITALS: BP 134/71; PULSE 71; RESP 19; TEMP 97.9
[2020-09-01 14:13] LABS: C. trachomatis,PCR Negative (Neg,Equiv); Chlamydia trachomatis Source Vagina; N. gonorrhoeae,PCR Negative (Neg,Equiv); Neisseria Source Vagina
== END 2020-08-29 02:46 | disposition home or self-care (01) ==
LOC: EC 00:16
DX: N72 Inflammatory disease of cervix uteri (principal); F17.290 Nicotine dependence, other tobacco product, uncomplicated
CPT/HCPCS: 36415; 80053; 83690; 85025; 81001; 81025; 87808; 87491; 87591; 87070; 93975; 76830; 99284; 96374; 96375 ×2; 96372; 96361; J2405; J0696; J1885

== ENCOUNTER 2021-04-29 13:43 | Emergency (ER) | payer OTHER ==
[2021-04-29 13:51] VITALS: BP 125/78; PULSE 87; RESP 16; TEMP 98.6
--- NOTE | 2021-04-29 15:34 | XR ---
EXAMINATION TYPE: XR chest 2V DATE OF EXAM: 04/29/2021 COMPARISON: Chest x-ray 08/05/2011 HISTORY: Cough TECHNIQUE: Frontal and lateral views of the chest are obtained. FINDINGS: There is no focal air space opacity, pleural effusion, or pneumothorax seen. The cardiac silhouette size is within normal limits. The osseous structures are intact, there is a slight spina l curvature. There is bronchial wall thickening. IMPRESSION: Correlate for bronchitis. Follow-up as indicated.
--- NOTE | 2021-04-29 15:38 | ED ---
URI HPI - General Chief Complaint: Upper Respiratory Infection Stated Complaint: congestion, lost voice Time Seen by Provider: 04/29/21 13:59 Source: patient, RN notes reviewed Mode of arrival: ambulatory Limitations: no limitations - History of Present Illness Initial Comments: This a 21-year-old female presents emergency from chief complaint of cough and congestion. Patient states she's been sick for several weeks with no relief. She states she has wheezing, burning of her lungs. Patient states there was some nasal congestion. said no fevers or chills no body aches no point headache she does have mild sinus pressure. - Related Data Home Medications Medication Instructions Recorded Confirmed Pnv No.95/Ferrous Fum/Folic AC 1 tab PO DAILY 05/25/19 08/11/19 [ Multivitamin Tablet] Previous Rx's Medication Instructions Recorded Ibuprofen [Motrin] 600 mg PO Q6HR PRN #60 tab 08/13/19 Azithromycin [Zithromax Z-pack (6 0 mg PO DIRECTED #1 packet 04/29/21 tabs)] predniSONE 50 mg PO DAILY #5 tab 04/29/21 Allergies Allergy/AdvReac Type Severity Reaction Status Date / Time No Known Allergies Allergy Verified 04/29/21 13:50 Review of Systems ROS Statement: Those systems with pertinent positive or pertinent negative responses have been documented in the HPI. ROS Other: All systems not noted in ROS Statement are negative. Past Medical History Past Medical History: No Reported History Additional Past Medical History / Comment(s): Obstetric history: She's had care with Dr. Ambriz. Blood type O positive, and was negative, rubella immune, hepatitis B negative, GBS positive, RPR nonreactive. History of Any Multi-Drug Resistant Organisms: None Reported Past Surgical History: No Surgical Hx Reported Past Anesthesia/Blood Transfusion Reactions: No Reported Reaction Past Psychological History: No Psychological Hx Reported Smoking Status: Vaper Past Alcohol Use History: None Reported Past Drug Use History: None Reported - Past Family History Mother Family Medical History: No Reported History General Exam Limitations: no limitations General appearance: alert, in no apparent distress Head exam: Present: atraumatic, normocephalic, normal inspection Eye exam: Present: normal appearance, PERRL, EOMI. Absent: scleral icterus, conjunctival injection, periorbital swelling ENT exam: Present: normal exam, normal oropharynx, mucous membranes moist Neck exam: Present: normal inspection, full ROM. Absent: tenderness, meningismus, lymphadenopathy Respiratory exam: Present: wheezes. Absent: respiratory distress, rales, rhonchi, stridor Cardiovascular Exam: Present: regular rate, normal rhythm, normal heart sounds. Absent: systolic murmur, diastolic murmur, rubs, gallop, clicks Course Vital Signs 04/29/21 13:48 Temperature 98.6 F Pulse Rate 87 Respiratory 16 Rate Blood Pressure 125/78 O2 Sat by Pulse 96 Oximetry Medical Decision Making - Medical Decision Making X-ray shows evidence of acute bronchitis. Patient discharged on azithromycin, prednisone return parameters were discussed. - Lab Data Lab Results 04/29/21 Range/Units 14:51 Urine HCG, Qual Not Detected (Not Detectd) Disposition Clinical Impression: Bronchitis, Laryngitis Disposition: HOME SELF-CARE Condition: Stable Instructions (If sedation given, give patient instructions): Upper Respiratory Infection (ED) Additional Instructions: Please return to the Emergency Department if symptoms worsen or any other concerns. Prescriptions: predniSONE 50 mg PO DAILY #5 tab Azithromycin [Zithromax Z-pack (6 tabs)] 0 mg PO DIRECTED #1 packet Is patient prescribed a controlled substance at d/c from ED?: No Referrals: None,Stated [Primary Care Provider] - 1-2 days
== END 2021-04-29 15:47 | disposition home or self-care (01) ==
LOC: EC 13:43
DX: J04.0 Acute laryngitis (principal); J40 Bronchitis, not specified as acute or chronic; F17.290 Nicotine dependence, other tobacco product, uncomplicated
CPT/HCPCS: 71046; 81025; 99283

== ENCOUNTER 2021-12-13 23:28 | Emergency (ER) | payer OTHER ==
[2021-12-13 23:40] VITALS: BP 135/82; PULSE 95; RESP 18; TEMP 98.8
--- NOTE | 2021-12-14 01:20 | XR ---
EXAMINATION TYPE: XR chest 1V DATE OF EXAM: 12/14/2021 COMPARISON: 04/29/2021 HISTORY: Cough TECHNIQUE: FINDINGS: Heart and mediastinum are normal. The lungs are clear of infiltrate. No heart failure. Ther e are some metal artifacts over the chest. No pleural effusion. Bony thorax is intact. IMPRESSION: No active cardiopulmonary disease. Metallic densities over the chest.
--- NOTE | 2021-12-14 02:18 | ED ---
URI HPI - General Chief Complaint: Upper Respiratory Infection Stated Complaint: Runny nose, sore throat Time Seen by Provider: 12/14/21 02:06 Source: patient, RN notes reviewed Mode of arrival: ambulatory Limitations: no limitations - History of Present Illness Initial Comments: Patient complaining of a headache, body aches, mild cough, symptoms for about 3 or 4 days. Patient has been exposed to COVID-19. Patient received the vaccine but not the posterior. Denies any shortness of breath. Denies any nausea or vomiting. Able to hold down fluids without problem. No abdominal pain. Patient has no chronic medical conditions. Denies cigarette smoking. POSITIVE for fever and chills, no changes in vision or hearing, no sore throat or difficulty with speech, no neck pain, no chest pain or shortness of breath, no abdominal pain, no nausea or vomiting, no changes in urination or bowel movements, no numbness or tingling, no extremity pain, no skin rashes or lesions. MD Complaint: cough - Related Data Home Medications Medication Instructions Recorded Confirmed Pnv No.95/Ferrous Fum/Folic AC 1 tab PO DAILY 05/25/19 08/11/19 [ Multivitamin Tablet] Previous Rx's Medication Instructions Recorded Ibuprofen [Motrin] 600 mg PO Q6HR PRN #60 tab 08/13/19 Azithromycin [Zithromax Z-pack (6 0 mg PO DIRECTED #1 packet 04/29/21 tabs)] predniSONE 50 mg PO DAILY #5 tab 04/29/21 Acetaminophen [Tylenol] 500 mg PO Q4-6H PRN #24 tab 12/14/21 Ibuprofen [Motrin Ib] 400 mg PO Q8H PRN #50 tab 12/14/21 Allergies Allergy/AdvReac Type Severity Reaction Status Date / Time No Known Allergies Allergy Verified 12/13/21 23:40 Review of Systems ROS Statement: Those systems with pertinent positive or pertinent negative responses have been documented in the HPI. ROS Other: All systems not noted in ROS Statement are negative. Past Medical History Past Medical History: No Reported History Additional Past Medical History / Comment(s): Obstetric history: She's had care with Dr. Ambriz. Blood type O positive, and was negative, rubella immune, hepatitis B negative, GBS positive, RPR nonreactive. History of Any Multi-Drug Resistant Organisms: None Reported Past Surgical History: No Surgical Hx Reported Past Anesthesia/Blood Transfusion Reactions: No Reported Reaction Past Psychological History: No Psychological Hx Reported Smoking Status: Vaper Past Alcohol Use History: None Reported Past Drug Use History: None Reported - Past Family History Mother Family Medical History: No Reported History General Exam - General Exam Comments Initial Comments: Does not appear to be ill or toxic. Vital signs reviewed. Limitations: no limitations General appearance: alert, in no apparent distress Head exam: Present: atraumatic, normocephalic, normal inspection Eye exam: Present: normal appearance, PERRL, EOMI. Absent: scleral icterus, conjunctival injection, periorbital swelling ENT exam: Present: normal exam, normal oropharynx, mucous membranes moist. Absent: mucous membranes dry Neck exam: Present: normal inspection. Absent: tenderness, meningismus, lymphadenopathy Respiratory exam: Present: normal lung sounds bilaterally. Absent: respiratory distress, wheezes, rales, rhonchi, stridor Cardiovascular Exam: Present: regular rate, normal rhythm, normal heart sounds. Absent: systolic murmur, diastolic murmur, rubs, gallop, clicks GI/Abdominal exam: Present: soft, normal bowel sounds. Absent: distended, tenderness, guarding, rebound, rigid Extremities exam: Present: normal inspection, full ROM, normal capillary refill. Absent: tenderness, pedal edema, joint swelling, calf tenderness Back exam: Present: normal inspection Neurological exam: Present: alert, oriented X3, CN II-XII intact Psychiatric exam: Present: normal affect, normal mood Skin exam: Present: warm, dry, intact, normal color. Absent: rash Course Vital Signs 12/13/21 23:37 Temperature 98.8 F Pulse Rate 95 Respiratory 18 Rate Blood Pressure 135/82 O2 Sat by Pulse 99 Oximetry Medical Decision Making - Medical Decision Making Patient in no significant distress. Appears to have symptoms consistent with mild COVID-19. Tested positive. Discussed quarantine measures. Discussed treatment plan. Patient was told to return to the ER for any signs or symptoms worsen. Told to return immediately if any other problems arise. All questions answered. Treatment plan discussed. Patient in agreement Every effort has been made to ensure accuracy of this dictation. However, due to the limitations of electronic medical records and dictation devices, errors in charting still occur. Supervising physicians Dr. Mata - Lab Data Lab Results 12/14/21 12/14/21 Range/Units 00:00 00:58 Coronavirus (PCR) Detected A (Not Detectd) Influenza Type A RNA Not Detected (Not Detectd) Influenza Type B (PCR) Not Detected (Not Detectd) Disposition Clinical Impression: COVID-19 Disposition: HOME SELF-CARE Condition: Stable Instructions (If sedation given, give patient instructions): Coronavirus Disease 2019 (COVID-19) Additional Instructions: SELF QUARANTINE DISCHARGE: As you are at risk for symptoms due to coronavirus, please stay home and stay away from others as much as possible. Please maintain social distance of 6 feet if possible. You should not return to work until at least 3 days (72 hours) have passed since recovery of symptoms. This defined as resolution of fever without the use of fever reducing medicines and improvement in respiratory symptoms (e.g,, cough, shortness of breath) Isolation can end at least 5 days after symptom onset and after fever ends for 24 hours (without the use of fever-reducing medication) and symptoms are improving, if these people can continue to properly wear a well-fitted mask around others for 5 more days after the 5-day isolation period. If you're still having symptoms at the end of 5 day period, isolate for an additional 5 days. More information about what to do if you are sick can be found on the CDC website at https://www.cdc.gov/coronavirus/2019-ncov/if-you-a re-sick/pvpid-lada-jsik.html Expect the symptoms to last for 7-14 days from onset. Use acetaminophen (Tylenol) as needed for discomfort. You can take a maximum of 1 gram every 6 hours for discomfort, with your total dose in 24 hours not exceeding 4 grams. Be sure to maintain hydration. Drink continuous water and/or items high in vitamin C, such as orange juice and/or lemonade. Unless you have high blood pressure, you may consider Sudafed (which is [id number]) for nasal congestion. I would suggest that a short acting Sudafed rather than the 24 hour Sudafed. For a cough you may take Mucinex or Robitussin. Also consider the use of Vicks Vapor Rub or your chest when you sleep. Use a humidifier that is cleaned frequently, in the bedroom at night. For Nausea /Vomiting/Diarrhea associated with your Illness: o Small frequent sips of room temperature liquids. o Diet: [place] Foods - If you are still experiencing discomfort and/or nausea please slowly advancing your diet using the BRAT Diet = bananas, rice, apples/apple sauce, toast. o With diarrhea avoid any dairy for 48 hours after symptoms resolved. o Continue with activity as tolerated. If your symptoms do get worse and you believe that the upper respiratory infection has developed into something else, such as pneumonia or severe dehydration, please return to the emergency department or follow-up with your primary care. But expect to be symptomatic for the days as indicated above Prescriptions: Ibuprofen [Motrin Ib] 400 mg PO Q8H PRN #50 tab PRN Reason: Pain Acetaminophen [Tylenol] 500 mg PO Q4-6H PRN #24 tab PRN Reason: Pain Is patient prescribed a controlled substance at d/c from ED?: No Referrals: Raisa Sung MD [STAFF PHYSICIAN] - 12/21/21 Time of Disposition: 02:17
== END 2021-12-14 02:43 | disposition home or self-care (01) ==
LOC: EC 23:28
DX: U07.1 COVID-19 (principal); F17.290 Nicotine dependence, other tobacco product, uncomplicated
CPT/HCPCS: 71045; 87502; 87635; 99284

== ENCOUNTER 2022-04-25 21:14 | Emergency (ER) | payer OTHER ==
[2022-04-25 22:17] VITALS: PULSE 72; RESP 16
[2022-04-25] MEDS ORDERED: SODIUM CHLORIDE 0.9% 1,000 ML IV ONE (23:02)
--- NOTE | 2022-04-25 23:32 | ED ---
Abdominal Pain HPI - General Chief Complaint: Abdominal Pain Stated Complaint: 4 weeks preg, cramping Time Seen by Provider: 04/25/22 23:01 Source: patient, RN notes reviewed Mode of arrival: ambulatory Limitations: no limitations - History of Present Illness Initial Comments: This is a 22-year-old female who is A0. She presents to the emergency department today complaining of lower abdominal cramping and pain. Patient states is actually going on for several days. Patient is just over 4 weeks according to her last menstrual period on March 10. Patient denying any nausea or vomiting. Denies any vaginal bleeding. No vaginal discharge. No vaginal leakage. No problems with urination. No headache, no fever or chills, no changes in vision or hearing, no sore throat or difficulty with speech, no neck pain, no chest pain or shortness of breath, no nausea or vomiting, no changes in urination or bowel movements, no numbness or tingling, no extremity pain, no skin rashes or lesions. Past medical, surgical, social, and family history reviewed. - Related Data Home Medications Medication Instructions Recorded Confirmed Pnv No.95/Ferrous Fum/Folic AC 1 tab PO DAILY 05/25/19 08/11/19 [ Multivitamin Tablet] Previous Rx's Medication Instructions Recorded Ibuprofen [Motrin] 600 mg PO Q6HR PRN #60 tab 08/13/19 Azithromycin [Zithromax Z-pack (6 0 mg PO DIRECTED #1 packet 04/29/21 tabs)] predniSONE 50 mg PO DAILY #5 tab 04/29/21 Acetaminophen [Tylenol] 500 mg PO Q4-6H PRN #24 tab 12/14/21 Ibuprofen [Motrin Ib] 400 mg PO Q8H PRN #50 tab 12/14/21 Pnv No.154/Iron Fum/Folic Acid 1 each PO DAILY #30 tablet 04/26/22 [ Plus Vitamin Tablet] Allergies Allergy/AdvReac Type Severity Reaction Status Date / Time No Known Allergies Allergy Verified 04/25/22 22:17 Review of Systems ROS Statement: Those systems with pertinent positive or pertinent negative responses have been documented in the HPI. ROS Other: All systems not noted in ROS Statement are negative. Past Medical History Past Medical History: No Reported History Additional Past Medical History / Comment(s): Obstetric history: She's had care with Dr. Ambriz. Blood type O positive, and was negative, rubella immune, hepatitis B negative, GBS positive, RPR nonreactive. History of Any Multi-Drug Resistant Organisms: None Reported Past Surgical History: No Surgical Hx Reported Past Anesthesia/Blood Transfusion Reactions: No Reported Reaction Past Psychological History: No Psychological Hx Reported Smoking Status: Vaper Past Alcohol Use History: None Reported Past Drug Use History: None Reported - Past Family History Mother Family Medical History: No Reported History General Exam - General Exam Comments Initial Comments: Well-developed, well-nourished 22-year-old female in no acute distress. Patient does not appear to be ill or toxic. Vital signs reviewed Limitations: no limitations General appearance: alert, in no apparent distress Head exam: Present: atraumatic, normocephalic, normal inspection Eye exam: Present: normal appearance, PERRL, EOMI. Absent: scleral icterus, conjunctival injection, periorbital swelling ENT exam: Present: normal exam, normal oropharynx, mucous membranes moist, normal external ear exam. Absent: mucous membranes dry Neck exam: Present: normal inspection, full ROM. Absent: tenderness, meningismus, lymphadenopathy Respiratory exam: Present: normal lung sounds bilaterally. Absent: respiratory distress, wheezes, rales, rhonchi, stridor Cardiovascular Exam: Present: regular rate, normal rhythm, normal heart sounds. Absent: systolic murmur, diastolic murmur, rubs, gallop, clicks GI/Abdominal exam: Present: soft, tenderness (Patient has minimal tenderness to the bilateral pelvic and suprapubic area. No guarding. No rebound or percussion tenderness.), normal bowel sounds. Absent: distended, guarding, rebound, rigid Extremities exam: Present: normal inspection, full ROM, normal capillary refill. Absent: tenderness, pedal edema, joint swelling, calf tenderness Back exam: Present: normal inspection Neurological exam: Present: alert, oriented X3, CN II-XII intact Psychiatric exam: Present: normal affect, normal mood Skin exam: Present: warm, dry, intact, normal color. Absent: rash Course Vital Signs 04/25/22 22:14 Temperature 97.8 F Pulse Rate 72 Respiratory 16 Rate Blood Pressure 127/83 O2 Sat by Pulse 100 Oximetry - Reevaluation(s) Reevaluation #1: 04/26/22 01:26 Medical record is reviewed Patient hemodynamically stable and is in no distress. Patient is informed of results and questions answered Patient in no distress Medical Decision Making - Medical Decision Making patient likely has mild discomfort related to early . However, ectopic is not out of the question. We'll obtain a pelvic ultrasound. Urinalysis is back and does not appear to be consistent with urinary tract infection. We'll send urine culture. Pelvic ultrasound shows twin intrauterine with no membrane severing the gestational sacs. Heart rate of baby A is 122, baby G1 123, baby A measures 6 weeks 5 days, baby be 6 weeks 4 days. No mention of ectopic . All findings discussed with the patient. Treatment plan discussed. Currently awaiting urinalysis results. Patient has an appointment already with Dr. Ambriz. Patient was told to return to the ER for any signs or symptoms worsen. Told to return immediately if any other problems arise. All questions answered. Treatment plan discussed. Patient in agreement Every effort has been made to ensure accuracy of this dictation. However, due to the limitations of electronic medical records and dictation devices, errors in charting still occur. Patient told to refrain from NSAIDs, refrain from any medications for pain other than Tylenol. She is to call her senior communications engineer for any advice on any other medications. vitamin was prescribed. Told to refrain from alcohol, smoking, illicit drugs. - Lab Data Result diagrams: 04/25/22 23:40 04/25/22 23:40 Lab Results 04/25/22 04/25/22 04/26/22 Range/Units 23:40 23:40 01:30 WBC 9.2 (3.8-10.6) k/uL RBC 3.96 (3.80-5.40) m/uL Hgb 12.4 (11.4-16.0) gm/dL Hct 37.4 (34.0-46.0) % MCV 94.3 (80.0-100.0) fL MCH 31.3 (25.0-35.0) pg MCHC 33.2 (31.0-37.0) g/dL RDW 13.8 (11.5-15.5) % Plt Count 245 (150-450) k/uL MPV 9.8 Neutrophils % 65 % Lymphocytes % 27 % Monocytes % 5 % Eosinophils % 1 % Basophils % 0 % Neutrophils # 6.0 (1.3-7.7) k/uL Lymphocytes # 2.5 (1.0-4.8) k/uL Monocytes # 0.4 (0-1.0) k/uL Eosinophils # 0.1 (0-0.7) k/uL Basophils # 0.0 (0-0.2) k/uL Sodium 135 L (137-145) mmol/L Potassium 4.2 (3.5-5.1) mmol/L Chloride 101 (98-107) mmol/L Carbon Dioxide 21 L (22-30) mmol/L Anion Gap 13 mmol/L BUN 13 (7-17) mg/dL Creatinine 0.63 (0.52-1.04) mg/dL Est GFR (CKD-EPI)AfAm >90 (>60 ml/min/1.73 sqM) Est GFR (CKD-EPI)NonAf >90 (>60 ml/min/1.73 sqM) Glucose 91 (74-99) mg/dL Calcium 9.3 (8.4-10.2) mg/dL Total Bilirubin 0.3 (0.2-1.3) mg/dL AST 19 (14-36) U/L ALT 18 (4-34) U/L Alkaline Phosphatase 90 (38-126) U/L Total Protein 7.7 (6.3-8.2) g/dL Albumin 4.6 (3.5-5.0) g/dL Urine Color Yellow Urine Appearance Cloudy H (Clear) Urine pH 5.5 (5.0-8.0) Ur Specific [place] 1.028 (1.001-1.035) Urine Protein Trace H (Negative) Urine Glucose (UA) Negative (Negative) Urine Ketones Negative (Negative) Urine Blood Negative (Negative) Urine Nitrite Negative (Negative) Urine Bilirubin Negative (Negative) Urine Urobilinogen <2.0 (<2.0) mg/dL Ur Leukocyte Esterase Moderate H (Negative) Urine RBC 1 (0-5) /hpf Urine WBC 2 (0-5) /hpf Ur Squamous Epith Cells 11 H (0-4) /hpf Urine Mucus Few H (None) /hpf - Radiology Data Radiology results: report reviewed, image reviewed Disposition Clinical Impression: Discomfort during , Twin gestation in first trimester Disposition: HOME SELF-CARE Condition: Good Instructions (If sedation given, give patient instructions): (ED), Abdominal Pain in (ED) Additional Instructions: Keep your appointment with Dr. Ambriz as planned. Do not take any NSAIDs for pain. If you have any discomfort you can use [id number] acetaminophen as directed on the bottle. Refrain from alcohol, drug use, vaping or smoking. Follow-up with your regular physician as directed. Return to the ER immediately if any symptoms worsen, new symptoms arise, or any other problems develop. Prescriptions: Pnv No.154/Iron Fum/Folic Acid [ Plus Vitamin Tablet] 1 each PO DAILY #30 tablet Is patient prescribed a controlled substance at d/c from ED?: No Referrals: America Ambriz DO [Doctor of Osteopathic Medicine] - As Soon As Possible (As luisa nned) Time of Disposition: 01:46
--- NOTE | 2022-04-25 23:59 | US ---
EXAMINATION TYPE: Transabdominal DATE OF EXAM: 04/25/2022 11:42 PM COMPARISON: NONE CLINICAL HISTORY: Early , pelvic pain. Pelvic pain EXAM PERFORMED: Transvaginal (TV) and Transabdominal (TA) EXAM MEASUREMENTS: GESTATIONAL AGE / DATING Physician Established: Not yet established Dates by LMP: (6 weeks/4 days) EDC: 12/15/2022 Dates by First Scan: No previous this is first scan Dates by Current Scan for: Baby A (6 weeks/5 days) EDC: 12/14/2022 Dates by Current Scan for Baby B (6 weeks/4 days) EDC: 12/15/2022 MATERNAL ANATOMY Uterus: 9.2 x 6.6 x 4.8 cm Right Ovary: 3.3 x 2.1 x 2.0 cm Left Ovary: 2.9 x 1.6 x 1.9 cm Post CDS / Adnexa: no free fluid Presence of free fluid: no Presence of corpus luteal cyst: right ovary = 2.0 x 1.9 x 1.7 cm Presence of subchorionic bleed: 1.0 x 0.5 x 0.8 cm GESTATION / SURVEY CRL A: 7.0 mm (6 weeks/5 days) CRL B: 6.8 mm (6 weeks/4 days) MSD: Seen not measured Yolk Sac A (normal less than 6mm): 2.6 mm Yolk Sac A (normal less than 6mm): 2.5 mm Heart Rate A: 122 bpm Heart Rate B: 123 bpm Rhythm: Normal IUP: Viable IUP Date of LMP: 03/10/2022, Beta HcG (if available): Not available at this time Gestational sac seen. Two yolk sacs and two CRL visualized. No inter twin membrane seen at this cristina e. IMPRESSION: There is 2 anterior uterine yolk sacs and poles with cardiac activity. There is no membrane sep arating the fetuses. The gestational sac has normal size. No adnexal mass. IMPRESSION: Twin intrauterine . No membrane the gestational sacs.
[2022-04-26 00:19] LABS: Basophils % (A) 0 %; Eosinophils # (A) 0.1 k/uL (0-0.7); Eosinophils % (A) 1 %; HCT 37.4 % (34.0-46.0); HGB 12.4 gm/dL (11.4-16.0); Lymphocytes # (A) 2.5 k/uL (1.0-4.8); Lymphocytes % (A) 27 %; MCH 31.3 pg (25.0-35.0); MCHC 33.2 g/dL (31.0-37.0); MCV 94.3 fL (80.0-100.0); Mean Platelet Volume 9.8; Monocytes # (A) 0.4 k/uL (0-1.0); Monocytes % (A) 5 %; Neutrophils % (A) 65 %; Platelet Count 245 k/uL (150-450); RBC 3.96 m/uL (3.80-5.40); RDW 13.8 % (11.5-15.5); WBC 9.2 k/uL (3.8-10.6)
[2022-04-26 00:44] LABS: ALT 18 U/L (4-34); AST 19 U/L (14-36); African American GFR (CKD) >90 (>60 ml/min/1.73 sqM); Albumin 4.6 g/dL (3.5-5.0); Alkaline Phosphatase 90 U/L (38-126); Anion Gap 13 mmol/L; Blood Urea Nitrogen 13 mg/dL (7-17); Calcium 9.3 mg/dL (8.4-10.2); Carbon Dioxide 21 mmol/L (22-30); Chloride 101 mmol/L (98-107); Glucose 91 mg/dL (74-99); Non-African American GFR(CKD) >90 (>60 ml/min/1.73 sqM); Potassium 4.2 mmol/L (3.5-5.1); Sodium 135 mmol/L (137-145); Total Bilirubin 0.3 mg/dL (0.2-1.3); Total Protein 7.7 g/dL (6.3-8.2)
[2022-04-26 01:40] LABS: Appearance,Urine Cloudy (Clear); Bilirubin,Urine Negative (Negative); Blood,Urine Negative (Negative); Color,Urine Yellow; Glucose,Urine (UA) Negative (Negative); Ketones,Urine Negative (Negative); Leukocyte Esterase,Urine Moderate (Negative); Mucus,Urine Few /hpf; Nitrite,Urine Negative (Negative); PH, Urine 5.5 (5.0-8.0); Protein,Urine Trace (Negative); RBC,Urine 1 /hpf (0-5); Specific Gravity,Urine 1.028 (1.001-1.035); Squamous Epithelial Cell,Urine 11 /hpf (0-4); Urobilinogen,Urine <2.0 mg/dL (<2.0); WBC,Urine 2 /hpf (0-5)
[2022-04-26 01:54] VITALS: BP 118/76; TEMP 98.2
[2022-04-26 02:46] LABS: HCG,Quantitative Serum 79892.8 mIU/mL
== END 2022-04-26 01:53 | disposition home or self-care (01) ==
LOC: EC 21:14
DX: O26.811 Pregnancy related exhaustion and fatigue, first trimester (principal); O30.001 Twin pregnancy, unspecified number of placenta and unspecified number of amniotic sacs, first trimester; F17.290 Nicotine dependence, other tobacco product, uncomplicated; Z3A.00 Weeks of gestation of pregnancy not specified
CPT/HCPCS: 36415; 76801; 76802; 76817; 80053; 81001; 84702; 85025; 86850; 86900; 86901; 96360; 99284

== ENCOUNTER → 2022-05-25 | Outpatient (CLI) | payer OTHER ==
[2022-05-25 23:27] LABS: HCT 36.2 % (37.2-46.3); HGB 11.7 g/dL (12.0-15.0); MCH 30.4 pg (27.0-32.0); MCHC 32.3 g/dL (32.0-37.0); Mean Platelet Volume 13.4 fL (9.5-12.2); NRBC Per 100 WBC 0 /100 WBCS (0.0-0.0); Platelet Count 179 X 10*3/uL (140-440); RBC 3.85 X 10*6/uL (4.10-5.20); RDW 13.1 % (11.5-14.5); WBC 9.63 X 10*3/uL (4.50-10.00)
[2022-05-25 23:50] LABS: African American GFR (CKD) 147.9 (60.0-200.0); Non-African American GFR(CKD) 127.6 (60.0-200.0)
[2022-05-26 00:01] LABS: Hepatitis B Surface Antigen Nonreactive (Nonreactive); Hepatitis C IgG Antibody Nonreactive (Nonreactive)
[2022-05-26 01:34] LABS: HIV 2 AB Non-Reactive (Non-Reactive); HIV AB P24 Non-Reactive (Non-Reactive); HIV P24 AG Non-Reactive (Non-Reactive)
--- NOTE | 2022-05-26 08:00 | US ---
EXAMINATION TYPE: US OB <= 14 wk twins DATE OF EXAM: 05/25/2022 COMPARISON: US 2021 CLINICAL HISTORY: O30.099 TWIN PREG, VERIFY GESTATION AGE AND NUMBER OF PLACEN. Twin gestation. . EXAM PERFORMED: Transabdominal (TA) EXAM MEASUREMENTS: GESTATIONAL AGE / DATING Physician Established: (10 weeks/6 days) EDC: 12/15/2022 Dates by LMP: (10 weeks/6 days) EDC: 12/15/2022 Dates by First Scan for Baby A: (11 weeks/0 days) EDC: 12/14/2022 Dates by First Scan for Baby B: (10 weeks/6 days) EDC: 12/15/2022 Dates by Current Scan for Baby A: (11 weeks/1 day) EDC: 12/13/2022 Dates by Current Scan for Baby B: (11 weeks/2 days) EDC: 12/12/2022 MATERNAL ANATOMY Uterus: 13.0 x 8.4 x 8.1 cm Anteverted. Placental tissue seen posteriorly. Right Ovary: 3.0 x 2.2 x 1.7 cm. Left Ovary: 3.6 x 2.1 x 1.4 cm. Post CDS / Adnexa: Appear wnl Presence of free fluid: None seen Presence of corpus luteal cyst: Area of mixed echogenicity seen right ovary: 0.9 x 0.8 x 0.6cm. Presence of subchorionic bleed: Complex area seen: 1.4 x 0.9 x 1.9 cm. Presence of two separate gestational sacs: Limitations, two techs scanned this portion. There appears to be a possible thin membrane on today's scan. Questionable membrane can be reassessed-recommend s hort-term follow up to confirm. GESTATION / SURVEY TWIN A CRL: 4.29 cm (11 wks/1 day) Yolk Sac (normal less than 6mm): Not seen Heart Rate: 167 bpm Rhythm: Normal IUP: Viable IUP Nuchal Translucency 10-14wks (normal less than 3mm): 1.0 mm TWIN B CRL: 4.48 (11 wks/ 2 days) Yolk Sac (normal less than 6mm): 3.9 mm Heart Rate: 160 bpm Rhythm: Normal IUP: Viable IUP Nuchal Translucency 10-14wks (normal less than 3mm): 1.2 mm Date of LMP: 03/10/2022 Beta HcG (if available): Not available IMPRESSION: 1. Twin live intrauterine with possible thin membrane the gestational sacs. Thi s can be reassessed on short-term follow-up examination. 2. Complex 1.4 cm lesion adjacent to the gestational sac likely representing a small subchorionic bl eed. Close clinical surveillance is recommended.
== END | disposition home or self-care (01) ==
LOC: RADUSWWP 15:08
PROVIDERS: ATTEND Obstetrics & Gynecology
DX: O30.099 Twin pregnancy, unable to determine number of placenta and number of amniotic sacs, unspecified trimester (principal); Z3A.00 Weeks of gestation of pregnancy not specified
CPT/HCPCS: 76801; 76802; 76813; 76814; 82565; 82947; 85027; 86762; 86780; 86803; 86850; 86900; 86901; 87340; 87390

== ENCOUNTER 2024-12-13 08:31 | Emergency (ER) | payer OTHER ==
--- NOTE | 2024-12-13 08:45 | ED ---
ENT HPI - General Chief complaint: ENT Stated complaint: sore throat Time Seen by Provider: 12/13/24 08:35 Source: patient, RN notes reviewed Mode of arrival: ambulatory Limitations: no limitations - History of Present Illness Initial comments: This is a 24-year-old female who presents to the emergency department for URI symptoms. States that she has had coughing and congestion for the last 2 to 3 days. All of the coughing is causing her to get a very sore throat. She has been around other sick family members. Denies any chest pain or shortness of breath. She is also concerned because she had a positive test yesterday and wants to make sure everything is okay from that perspective. She does have a a lot of stomach problems as it is, causing her to get frequent abdominal pain. Denies any vaginal bleeding. MD complaint: sore throat - Related Data Home Medications Medication Instructions Recorded Confirmed Pnv No.95/Ferrous Fum/Folic AC 1 tab PO DAILY 05/25/19 08/11/19 [ Multivitamin Tablet] Previous Rx's Medication Instructions Recorded Ibuprofen [Motrin] 600 mg PO Q6HR PRN #60 tab 08/13/19 Azithromycin [Zithromax Z-pack (6 0 mg PO DIRECTED #1 packet 04/29/21 tabs)] predniSONE 50 mg PO DAILY #5 tab 04/29/21 Acetaminophen [Tylenol] 500 mg PO Q4-6H PRN #24 tab 12/14/21 Ibuprofen [Motrin Ib] 400 mg PO Q8H PRN #50 tab 12/14/21 Pnv No.154/Iron Fum/Folic Acid 1 each PO DAILY #30 tablet 04/26/22 [ Plus Vitamin Tablet] Lidocaine Viscous [Xylocaine 5 - 10 ml PO Q4-6H PRN #100 ml 12/13/24 Viscous 2%] Allergies Allergy/AdvReac Type Severity Reaction Status Date / Time No Known Allergies Allergy Verified 04/25/22 22:17 Review of Systems ROS Statement: Those systems with pertinent positive or pertinent negative responses have been documented in the HPI. ROS Other: All systems not noted in ROS Statement are negative. Past Medical History Past Medical History: No Reported History Additional Past Medical History / Comment(s): Obstetric history: She's had care with Dr. Ambriz. Blood type O positive, and was negative, rubella immune, hepatitis B negative, GBS positive, RPR nonreactive. History of Any Multi-Drug Resistant Organisms: None Reported Past Surgical History: No Surgical Hx Reported Past Anesthesia/Blood Transfusion Reactions: No Reported Reaction Past Psychological History: No Psychological Hx Reported Smoking Status: Vaper Past Alcohol Use History: None Reported Past Drug Use History: None Reported - Past Family History Mother Family Medical History: No Reported History General Exam Limitations: no limitations General appearance: alert, in no apparent distress Head exam: Present: atraumatic, normocephalic, normal inspection ENT exam: Present: other (Posterior pharyngeal erythema with tonsillar hypertrophy. No exudates) Neck exam: Present: normal inspection. Absent: tenderness, meningismus, lymphadenopathy Respiratory exam: Present: normal lung sounds bilaterally. Absent: respiratory distress, wheezes, rales, rhonchi, stridor Cardiovascular Exam: Present: regular rate, normal rhythm Neurological exam: Present: alert, oriented X3, CN II-XII intact Psychiatric exam: Present: normal affect, normal mood Skin exam: Present: warm, dry, intact, normal color. Absent: rash Course Vital Signs 12/13/24 12/13/24 08:33 11:24 Temperature 97.8 F 98.8 F Pulse Rate 65 81 Respiratory 16 14 Rate Blood Pressure 113/76 104/67 O2 Sat by Pulse 99 100 Oximetry Medical Decision Making - Medical Decision Making This is a 24-year-old female who presents to the emergency department for a sore throat. Was pt. sent in by a medical professional or institution? @ -No Did you speak to anyone other than the patient for history? @ -No Did you review nursing and triage notes? @ -Yes, and I agree, it is accurate with regards to the patient's symptoms. Were old charts reviewed? @ -No Differential Diagnosis? @ -Differential Sore Throat: Strep pharyngitis, herpes zoster, COVID, influenza, GERD, allergic rhinitis, mononucleosis, this is not meant to be an all-inclusive list. EKG interpreted by me (3pts min.)? @ -Not obtained X-rays interpreted by me (1pt min.)? @ -Not obtained CT interpreted by me (1pt min.)? @ -Not obtained U/S interpreted by me (1pt. min.)? @ -Not obtained What testing was considered but not performed? (CT, X-rays, U/S, labs)? Why? @ -None What meds were considered but not given? Why? @ -None Did you discuss the management of the patient with other professionals? @ -No Did you reconcile home meds? @ -No Was smoking cessation discussed for >3mins.? @ -No Was critical care preformed (if so, how long)? @ -No Were there social determinants of health that impacted care today? How? (Homelessness, low income, unemployed, alcoholism, drug addiction, transportation, low edu. Level, literacy, decrease access to med. care, detention, rehab)? @ -No Was there de-escalation of care discussed even if they declined? (Discuss DNR or withdrawal of care, Hospice)? @ -No What co-morbidities impacted this encounter? (DM, HTN, Smoking, COPD, CAD, Cancer, CVA, Hep., AIDS, mental health diagnosis, sleep apnea, morbid obesity)? @ - Was patient admitted / discharged? @ -Discharged. COVID, influenza, RSV, and rapid strep test negative. Symptoms likely viral in nature, especially given the sick contacts. Patient's beta-hCG is 401. She had inquired about an ultrasound. She was currently asymptomatic with regards to the and I advised that we do not have a reason to order one at this point and with the current level it would be very unlikely that anything would be visualized. She does have an upcoming appointment with an MEDICAL SERVICES MANAGER next month and I advised she follow-up as scheduled. Viscous lidocaine prescribed for the sore throat. We discussed [id number]-[id number] cough medication that does not contain NSAIDs like ibuprofen, aspirin, or alcohol. Patient discharged home in stable condition. Case discussed with ED attending Dr. Mejia. Return precautions reviewed in depth, the patient is instructed to return to the emergency department with any new, worsening, or concerning symptoms. Patient verbalized understanding. Undiagnosed new problem with uncertain prognosis? @ -None Drug Therapy requiring intensive monitoring for toxicity (Heparin, Nitro, Insulin, Cardizem)? @ -None Were any procedures done? @ -None Diagnosis/symptom? @ -Pharyngitis, URI, Acute, or Chronic, or Acute on Chronic? @ -Acute Uncomplicated (without systemic symptoms) or Complicated (systemic symptoms)? @ -Uncomplicated Side effects of treatment? @ -None Exacerbation, Progression, or Severe Exacerbation] @ -Not applicable Poses a threat to life or bodily function? @ -No - Lab Data Lab Results 12/13/24 12/13/24 12/13/24 Range/Units 08:59 08:59 08:59 HCG, Quant 401.0 mIU/mL Influenza Type A (PCR) Not Detected (Not Detectd) Influenza Type B (PCR) Not Detected (Not Detectd) RSV (PCR) Not Detected (Not Detectd) SARS-CoV-2 (PCR) Not Detected (Not Detectd) Group A Strep (PCR) NOT DETECTED (Not Detectd) Disposition Clinical Impression: URI (upper respiratory infection), Pharyngitis, Disposition: HOME SELF-CARE Instructions (If sedation given, give patient instructions): Pharyngitis (ED) Additional Instructions: Return to the emergency department with any new, worsening, or concerning symptoms. You can have the viscous lidocaine as needed to help with the sore throat. You can take any ootw-cgn-inrzizm cough medication as long as it does not contain anti-inflammatory's like ibuprofen/aspirin or alcohol. Follow-up with your MEDICAL SERVICES MANAGER. Prescriptions: Lidocaine Viscous [Xylocaine Viscous 2%] 5 - 10 ml PO Q4-6H PRN #100 ml PRN Reason: Sore Throat Is patient prescribed a controlled substance at d/c from ED?: No Referrals: Nonstaff,Physician [REFERRING] - 1-2 days Time of Disposition: 11:19
[2024-12-13] MEDS: guaiFENesin-DM 600/30MG 1 EACH TAB.ER.12H PO STA (09:00)
[2024-12-13] MEDS: LIDOCAINE VISCOUS 2% 15 ML CUP PO ONE (09:00)
[2024-12-13 10:59] LABS: Influenza A Not Detected (Not Detectd); Influenza B Not Detected (Not Detectd); RSV Not Detected (Not Detectd)
[2024-12-13 11:25] VITALS: BP 104/67; PULSE 81; RESP 14; TEMP 98.8
== END 2024-12-13 11:25 | disposition home or self-care (01) ==
LOC: EC 08:31
DX: O99.519 Diseases of the respiratory system complicating pregnancy, unspecified trimester (principal); J06.9 Acute upper respiratory infection, unspecified; O99.330 Smoking (tobacco) complicating pregnancy, unspecified trimester; F17.290 Nicotine dependence, other tobacco product, uncomplicated; Z3A.00 Weeks of gestation of pregnancy not specified
CPT/HCPCS: 36415; 84702; 87636; 87651; 99283